=== PATIENT | female | born 1945 | race Caucasian/White ===

== ENCOUNTER → 2016-09-29 | Outpatient (CLI) | payer MEDICARE, OTHER ==
[~2016-09-29] MED LIST: ADVAIR 250/28 DISKU1 IH; ALBUTEROL0.83 MG/ML IH; ALEVE 220MG220 MG PO; BIAXIN 500MG T500 MG PO; C-PAP AT NIGHT; CALCIUM 600 W/V1 TAB PO; CELEXA10 MG PO; CEPACOL SORE TH1 LO8 MM; CEPHALEXIN250 M1; CHILDREN'S ZYRT10 MG PO; CIPRO 500MG TA500 MG PO; CIPRO500 MG PO; COMBIVENT INH14.7 GM IH; FLONASEALLERGY NS; GENTAMICIN180 MG/501 NS; HYDROCODONE/APAP PO; LEVOTHROID0.112 MG PO; LEVOTHYROXIN0.025 MG PO; LEVOXYL0.1 MG PO; LEVOXYL0.112 MG PO; LORTAB 2.5/5001 TAB PO; LOVENOX 4040 MG/0.4 SQ; MACROBID 1100 MG/CAP PO; METRONIDAZOLE500 MG PO; MULTIPLE VITAMI1 CAP PO; NEXIUM 40MG40 MG PEG; NEXIUM40 MG PO; NORCO 325 MG-51 TAB PO; NORCO 325 MG-7.1 TAB PO; PREDNISONE20 MG PO; PREVACID 30MG30 M1 PO; PRILOSEC 20MG20 MG PO; PRILOTC; PROAIR HFA0.09 MG/AC IH; REGLAN 10MG10 MG/TAB PO; ROPINIROLE HY0.25 MG PO; RT ADVAIR 228 DISKUS IH; RT SPIRIVA18 MCG IH; SINGULAIR 110 MG/TAB PO; SINGULAIR10 MG PO; SINGULAIR4 MG PO; SYNTHROID0.088 MG/T PO; ULTRAM 50MG TAB50 MG PO; VITAMIN C500 MG PO; VITAMIN D5000 IU PO; XANAX .25M0.25 MG/TA PO; ZYRTEC 10MG10 MG PO
== END ==
LOC: MC.RAD 13:51
DX: Z12.31 Encounter for screening mammogram for malignant neoplasm of breast (principal)

== ENCOUNTER 2016-12-01 13:53 | Emergency (ER) | payer MEDICARE, OTHER ==
[2005-03-03 11:22] VITALS: BP 159/86
[~2016-12-01] VITALS: Ht 157.5 cm; Wt 78.9 kg
[~2016-12-01 13:53] MED LIST changes: -FLONASEALLERGY NS; -SYNTHROID0.088 MG/T PO; -ULTRAM 50MG TAB50 MG PO
[2016-12-01 13:54] VITALS: TEMP 97.6
[2016-12-01 14:47] LABS: BASO # 0.1 (0.0-0.2); BASO % 0.8 % (0.0-2.0); EOS # 0.2 (0.0-0.7); EOS % 2.2 % (0-4.0); GRAN % 71.5 % (42.2-75.2); LYMPH # 1.6 (1.2-3.4); LYMPH % 16.8 % (20.0-51.0); MEAN CELL VOLUME 93 fl (80.0-100.0); MEAN CORPUSCULAR HGB CONC 33 g/dl (33.0-37.0); MEAN PLATELET VOLUME 8.6 fl (7.4-10.4); MONO # 0.8 (0.1-0.6); MONO % 8.5 % (1.7-9.3); PLATELET COUNT 303 K/mm3 (130-400); RED BLOOD COUNT 3.84 M/mm3 (4.10-5.30); REDCELL DISTRIBUTION WIDTH-CV 12.5 % (11.5-14.5); WHITE BLOOD COUNT 9.7 K/mm3 (4.8-10.8)
[2016-12-01 14:48] LABS: PH 6 (5-8); URINE APPEARANCE Cloudy; URINE BACTERIA Many /hpf; URINE BILIRUBIN Negative (NEGATIVE); URINE BLOOD 2+ (NEGATIVE); URINE COLOR Yellow; URINE GLUCOSE Negative (NEGATIVE); URINE KETONE Negative (NEGATIVE); URINE RBC >50 /hpf; URINE WBC >50 /hpf
[2016-12-01 14:51] LABS: HEMATOCRIT 35.6 % (37.0-47.0); HEMOGLOBIN 11.8 g/dl (12.5-16.0); MEAN CORPUSCULAR HEMOGLOBIN 31 pg (27.0-31.0)
[2016-12-01 14:56] LABS: INR 1.1 (0.8-3.0); PROTHROMBIN TIME 12.4 SECONDS (9.7-12.8)
[2016-12-01 15:03] LABS: CALCIUM 9.1 mg/dL (8.4-10.2); CREATININE, serum 0.75 mg/dL (0.52-1.25); POTASSIUM 4.5 mmol/L (3.4-5.0)
[2016-12-01] MEDS ORDERED: FLONASEALLERGY NS (15:18)
[2016-12-01] MEDS ORDERED: SYNTHROID0.088 MG/T PO (15:18)
[2016-12-01] MEDS ORDERED: ULTRAM 50MG TAB50 MG PO (15:19)
[2016-12-01] MEDS ORDERED: MACROBID 1100 MG/CAP PO (15:25)
[2016-12-01 15:36] VITALS: BP 135/85; PULSE 78
== END 2016-12-01 15:37 | disposition home or self-care (01) ==
LOC: COL.ER 13:53
PROVIDERS: Emergency Medicine
DX: N93.9 Abnormal uterine and vaginal bleeding, unspecified (principal); N89.9 Noninflammatory disorder of vagina, unspecified; Z93.3 Colostomy status

== ENCOUNTER → 2017-03-01 | Outpatient (CLI) | payer MEDICARE, OTHER ==
[~2017-03-01] MED LIST changes: +FLONASEALLERGY NS; +SYNTHROID0.088 MG/T PO; +ULTRAM 50MG TAB50 MG PO
== END ==
LOC: COL.RAD 09:29
DX: N30.20 Other chronic cystitis without hematuria (principal)

== ENCOUNTER 2017-03-26 10:31 | Inpatient (IN) | payer MEDICARE, OTHER ==
[~2017-03-26] VITALS: Ht 154.9 cm; Wt 84.1 kg
[2017-03-26 11:39] LABS: HEMATOCRIT 44.2 % (37.0-47.0); MEAN CELL VOLUME 92 fl (80.0-100.0); MEAN CORPUSCULAR HEMOGLOBIN 31 pg (27.0-31.0); MEAN CORPUSCULAR HGB CONC 34 g/dl (33.0-37.0); MEAN PLATELET VOLUME 9.2 fl (7.4-10.4); PLATELET COUNT 335 K/mm3 (130-400); REDCELL DISTRIBUTION WIDTH-CV 12.7 % (11.5-14.5); WHITE BLOOD COUNT 14.9 K/mm3 (4.8-10.8)
[2017-03-26 11:47] LABS: ADD PATHOLOGY DIFF REVIEW NO
[2017-03-26 11:56] LABS: PROTHROMBIN TIME 10.5 SECONDS (9.7-12.8)
[2017-03-26 11:59] LABS: PARTIAL THROMBOPLASTIN TIME 27.6 SECONDS (26.0-37.0)
[2017-03-26 12:12] LABS: PH 5 (5-8); SQUAMOUS EPITHELIAL 0-2 /hpf; URINE APPEARANCE Clear; URINE BACTERIA None Seen /hpf; URINE BILIRUBIN Negative (NEGATIVE); URINE BLOOD Negative (NEGATIVE); URINE COLOR Yellow; URINE GLUCOSE Negative (NEGATIVE); URINE KETONE Negative (NEGATIVE); URINE RBC None Seen /hpf; URINE UROBILINOGEN Negative (NEGATIVE); URINE WBC 0-2 /hpf
[2017-03-26 12:29] LABS: BAND 45 % (0-10); NEUTROPHILS 50 % (42.0-75.2); PLATELET ESTIMATE NORMAL (NORMAL); TOTAL CELLS COUNTED 100
[2017-03-26 12:39] LABS: ADJUSTED CALCIUM 9.2 mg/dL (8.4-10.2); ALBUMIN 5.2 gm/dL (3.5-5.0); BILIRUBIN,TOTAL 0.9 mg/dL (0.0-1.0); CALCIUM 10.2 mg/dL (8.4-10.2); CREATININE, serum 0.68 mg/dL (0.52-1.25); POTASSIUM 3.7 mmol/L (3.4-5.0); TOTAL PROTEIN 8.3 gm/dL (6.4-8.2)
[2017-03-26 17:28] VITALS: BP 148/68; PULSE 111; TEMP 98.3
[2017-03-26 21:12] VITALS: BP 142/60; PULSE 115; TEMP 98.7
[2017-03-27 01:42] VITALS: BP 142/71; PULSE 101; TEMP 98
[2017-03-27 05:52] VITALS: BP 117/42; PULSE 100; TEMP 98.2
[2017-03-27 07:59] LABS: HEMATOCRIT 37.9 % (37.0-47.0); MEAN CELL VOLUME 94 fl (80.0-100.0); MEAN CORPUSCULAR HEMOGLOBIN 31 pg (27.0-31.0); MEAN CORPUSCULAR HGB CONC 33 g/dl (33.0-37.0); MEAN PLATELET VOLUME 9.6 fl (7.4-10.4); PLATELET COUNT 291 K/mm3 (130-400); RED BLOOD COUNT 4.02 M/mm3 (4.10-5.30); WHITE BLOOD COUNT 6.3 K/mm3 (4.8-10.8)
[2017-03-27 08:00] LABS: ADD PATHOLOGY DIFF REVIEW NO; HEMOGLOBIN 12.5 g/dl (12.5-16.0)
[2017-03-27 08:10] LABS: CALCIUM 8.1 mg/dL (8.4-10.2); CREATININE, serum 0.7 mg/dL (0.52-1.25); POTASSIUM 3.6 mmol/L (3.4-5.0)
[2017-03-27 08:38] LABS: BAND 62 % (0-10); BASOPHIL 1 % (0-2); EOSINOPHIL 3 % (0-4); NEUTROPHILS 7 % (42.0-75.2); TOTAL CELLS COUNTED 100
[2017-03-27 08:39] LABS: PLATELET ESTIMATE NORMAL (NORMAL)
[2017-03-27 09:44] VITALS: BP 128/51; PULSE 98; TEMP 97.8
[2017-03-27 13:09] VITALS: BP 130/54; PULSE 94; TEMP 97.9
[2017-03-27 17:46] VITALS: BP 119/45; PULSE 100; TEMP 98.2
[2017-03-27 22:08] VITALS: BP 116/48; PULSE 95; TEMP 97.8
[2017-03-28 05:03] VITALS: BP 123/41; PULSE 85; TEMP 97.9
[2017-03-28 10:40] VITALS: BP 139/55; PULSE 84; TEMP 97.7
[2017-03-28 14:20] VITALS: BP 145/54; PULSE 85; TEMP 98.1
[2017-03-28 17:24] VITALS: BP 137/54; PULSE 86; TEMP 98.5
[2017-03-28 22:27] VITALS: BP 136/50; PULSE 95; TEMP 98.2
[2017-03-29 06:25] VITALS: BP 111/44; PULSE 83; TEMP 98.2
[2017-03-29 06:46] LABS: CALCIUM 8.2 mg/dL (8.4-10.2); CREATININE, serum 0.48 mg/dL (0.52-1.25); MAGNESIUM 1.8 mg/dL (1.6-2.3); POTASSIUM 3.7 mmol/L (3.4-5.0)
[2017-03-29 08:59] VITALS: BP 131/45; PULSE 65; TEMP 97.7
[2017-03-29 13:32] VITALS: BP 115/45; PULSE 84; TEMP 97.9
[2017-03-29 17:31] VITALS: BP 142/59; PULSE 76; TEMP 97.7
[2017-03-29 21:59] VITALS: BP 137/57; PULSE 83; TEMP 98.1
[2017-03-30 06:08] VITALS: BP 135/52; PULSE 80; TEMP 98.1
[2017-03-30 09:08] VITALS: BP 142/51; PULSE 87; TEMP 98
[2017-03-30 13:18] VITALS: BP 143/58; PULSE 70; TEMP 98.3
== END 2017-03-30 17:00 | disposition home health service (06) | DRG 393 ==
LOC: COL.ER 10:31 → SURG 15:19
PROVIDERS: Internal Medicine; Nurse Practitioner; Physician Assistant
DX: K43.3 Parastomal hernia with obstruction, without gangrene (principal); J69.0 Pneumonitis due to inhalation of food and vomit; J98.11 Atelectasis; J44.9 Chronic obstructive pulmonary disease, unspecified; K43.5 Parastomal hernia without obstruction or gangrene; E11.9 Type 2 diabetes mellitus without complications; E03.9 Hypothyroidism, unspecified; Z87.891 Personal history of nicotine dependence; Z93.3 Colostomy status
CPT/HCPCS: 99223-AI; 99232-AI; 99239; A9284; J1170; J2185; J2405; J3010; J7030; J7040; Q9967

== ENCOUNTER 2017-09-10 14:45 | Outpatient (RCR) | payer MEDICARE, OTHER ==
[~2017-09-10 14:45] MED LIST changes: +HYZAAR 50-12.1 UDTAB PO; +MASON NATURAL2000 IU PO
== END 2017-09-14 15:07 | disposition home or self-care (01) ==
LOC: MKS.ESL.PT 14:45
DX: M54.5 Low back pain (principal); G89.29 Other chronic pain; Z98.890 Other specified postprocedural states
CPT/HCPCS: G8978-GP; G8979-GP; G8980-GP

== ENCOUNTER → 2017-09-30 | Outpatient (CLI) | payer MEDICARE, OTHER | LOC: MC.RAD 13:28 | DX: Z12.31 Encounter for screening mammogram for malignant neoplasm of breast (principal) ==

== ENCOUNTER → 2018-11-24 | Outpatient (CLI) | payer MEDICARE, OTHER | LOC: MC.RAD 15:29 | DX: Z12.31 Encounter for screening mammogram for malignant neoplasm of breast (principal) ==

== ENCOUNTER → 2020-01-30 | Outpatient (CLI) | payer MEDICARE, OTHER | LOC: MC.RAD 13:45 | DX: Z12.31 Encounter for screening mammogram for malignant neoplasm of breast (principal) ==

== ENCOUNTER 2020-03-02 01:51 | Emergency (ER) | payer MEDICARE, OTHER ==
[2005-03-03 11:22] VITALS: BP 159/86
[~2020-03-02] VITALS: Ht 157.5 cm; Wt 81.8 kg
[2020-03-02 03:38] LABS: BASO # 0.1 (0.0-0.2); BASO % 0.6 % (0.0-2.0); EOS # 0.3 (0.0-0.7); EOS % 3.5 % (0-4.0); GRAN % 61.3 % (42.2-75.2); HEMATOCRIT 39.4 % (37.0-47.0); HEMOGLOBIN 12.9 g/dl (12.5-16.0); LYMPH # 2.1 (1.2-3.4); MEAN CELL VOLUME 96 fl (80.0-100.0); MEAN CORPUSCULAR HEMOGLOBIN 32 pg (27.0-31.0); MEAN CORPUSCULAR HGB CONC 33 g/dl (33.0-37.0); MEAN PLATELET VOLUME 8.9 fl (7.4-10.4); MONO # 0.8 (0.1-0.6); MONO % 9.4 % (1.7-9.3); PLATELET COUNT 242 K/mm3 (130-400); REDCELL DISTRIBUTION WIDTH-CV 12.7 % (11.5-14.5)
[2020-03-02 03:48] LABS: ALANINE AMINOTRANSFERASE 17 U/L (4-34); ALBUMIN 4.1 gm/dL (3.5-5.0); ALKALINE PHOSPHATASE 86 U/L (50-136); ANION GAP 8 mmol/L (7-16); AST,SGOT 20 U/L (15-37); BILIRUBIN,TOTAL 0.6 mg/dL (0.0-1.0); BLOOD UREA NITROGEN 18 mg/dL (7-17); CARBON DIOXIDE 29 mmol/L (22-30); CHLORIDE 96 mmol/L (98-107); CREATININE, serum 0.65 (0.52-1.25); GLUCOSE 122 mg/dL (74-106); LIPASE 41 U/L (23-300); POTASSIUM 4.3 mmol/L (3.4-5.0); SODIUM 133 mmol/L (137-145); TOTAL PROTEIN 7.1 gm/dL (6.4-8.2)
[2020-03-02 04:22] LABS: TROPONIN-I < 0.012 ng/mL (0.000-0.035)
[2020-03-02 05:29] LABS: COLLECTION METHOD CLEAN CATCH
[2020-03-02 05:39] LABS: MUCOUS Present /lpf; PH 6 (5-8); SQUAMOUS EPITHELIAL 0-2 /hpf; URINE APPEARANCE Clear; URINE BACTERIA None Seen /hpf; URINE BILIRUBIN Negative (NEGATIVE); URINE BLOOD Negative (NEGATIVE); URINE COLOR Yellow; URINE GLUCOSE Negative (NEGATIVE); URINE KETONE Negative (NEGATIVE); URINE LEUKOCYTE ESTERASE Negative (NEGATIVE); URINE NITRATE Negative (NEGATIVE); URINE PROTEIN(semi-quant) Negative (NEGATIVE); URINE RBC None Seen /hpf; URINE UROBILINOGEN Negative (NEGATIVE)
[2020-03-02] MEDS ORDERED: ZITHROMAX Z PA250 MG PO ×3 (06:55→14:53)
[2020-03-02] MEDS ORDERED: PREDNISONE20 MG PO ×3 (06:55→14:53)
[2020-03-02 07:05] VITALS: BP 127/61; PULSE 98; TEMP 97.6
== END 2020-03-02 07:25 | disposition home or self-care (01) ==
LOC: COL.ER 01:51
PROVIDERS: Emergency Medicine
DX: J44.1 Chronic obstructive pulmonary disease with (acute) exacerbation (principal); K43.9 Ventral hernia without obstruction or gangrene; E11.9 Type 2 diabetes mellitus without complications; Z87.891 Personal history of nicotine dependence; Z90.710 Acquired absence of both cervix and uterus; Z79.51 Long term (current) use of inhaled steroids; Z79.890 Hormone replacement therapy
CPT/HCPCS: J7030; J7512; Q9967

== ENCOUNTER → 2020-03-26 | Outpatient (CLI) | payer MEDICARE, OTHER ==
[~2020-03-26] MED LIST changes: +ZITHROMAX Z PA250 MG PO
== END ==
LOC: COL.RAD 12:31
DX: Z01.812 Encounter for preprocedural laboratory examination (principal); K43.6 Other and unspecified ventral hernia with obstruction, without gangrene; Z90.49 Acquired absence of other specified parts of digestive tract; Z90.710 Acquired absence of both cervix and uterus
CPT/HCPCS: Q9967

== ENCOUNTER → 2021-01-31 | Outpatient (CLI) | payer MEDICARE, OTHER | LOC: MC.RAD 13:50 | DX: Z12.31 Encounter for screening mammogram for malignant neoplasm of breast (principal) ==

== ENCOUNTER → 2022-04-06 | Outpatient (CLI) | payer MEDICARE | LOC: MC.RAD 13:37 | DX: Z12.31 Encounter for screening mammogram for malignant neoplasm of breast (principal) ==

== ENCOUNTER 2022-06-10 11:18 | Inpatient (IN) | payer MEDICARE ==
[~2022-06-10] VITALS: Ht 157.5 cm; Wt 84.1 kg
[2022-06-10 12:05] LABS: HEMATOCRIT 44.5 % (37.0-47.0); MEAN CELL VOLUME 94 fl (80.0-100.0); MEAN CORPUSCULAR HEMOGLOBIN 32 pg (27-31); MEAN CORPUSCULAR HGB CONC 34 g/dl (33.0-37.0); PLATELET COUNT 320 K/mm3 (130-400); RED BLOOD COUNT 4.73 M/mm3 (4.10-5.30); REDCELL DISTRIBUTION WIDTH-CV 12.4 % (11.5-14.5)
[2022-06-10 12:12] LABS: ALBUMIN 4.6 gm/dL (3.4-4.8); BILIRUBIN,TOTAL 0.8 mg/dL (0.2-1.2); C-REACTIVE PROTEIN 2.66 mg/dL (0.00-0.50); CALCIUM 9.9 mg/dL (8.4-10.2); CREATININE, serum 0.9 mg/dL (0.57-1.11); TOTAL PROTEIN 8.1 gm/dL (6.2-8.1)
[2022-06-10 12:19] LABS: BAND 28 % (0-10); LYMPHOCYTE 2 % (20.0-51.0); NEUTROPHILS 67 % (42.0-75.2); POTASSIUM 3.9 mmol/L (3.5-4.5)
[2022-06-10 12:20] LABS: PLATELET ESTIMATE NORMAL (NORMAL)
[2022-06-10 16:50] VITALS: BP 139/70; PULSE 109; TEMP 97.6
--- NOTE | 2022-06-10 17:20 | NUR ---
Patient arrived to the unit by bed, alert and oriented x 4, VSS. States she has pain in the lower abdoment 06/08, No signs of hard discomfort. Colostomy bag in the left lower quadrant. Empty. STates last time she emptied it was yesterday 06/09/22 in the morning. NG tube with constant succion. Dark green output.
--- NOTE | 2022-06-10 18:12 | NUR ---
Call placed to Dr Small to get instrunctions about patient diet. Message was left with his spouse to call us back. Pt right now NPO and contninues with NG suction. Report will be given to night RN.
--- NOTE | 2022-06-10 18:27 | NUR ---
Patient is resting in bed, continues with discomfort in her lower abdomen. Suction on. Report will be given to night RN.
[2022-06-10 19:38] VITALS: BP 155/63; PULSE 111; TEMP 98.4
[2022-06-11] VITALS (7 sets, daily range): BP systolic 109–156; BP diastolic 47–67; PULSE 88–104; TEMP 97.2–98.7
--- NOTE | 2022-06-11 00:53 | NUR ---
00:53 MISA GRAY NOTIFIED OF PTS TROPONIN OF 0.034. NEW ORDER FOR TROPONIN RECHECK AT 5 AM. WILL MONITOR.
--- NOTE | 2022-06-11 03:55 | NUR ---
SHIFT NURSING ASSESSMENT COMPLETED. THE PATIENT IS ALERT AND ORIENTED AND APPROPRIATE. THE PATIENT REQUESTED HER THERMOSTAT BE TURNED DOWN SO THE TEMPERATURE WAS ADJUSTED. NO S/S OF DISTRESS NOTED. NG TUBE TO LIS WITH THIN GREEN LIQUID OUTPUT NOTED. THE BED IS IN THE LOWEST POSITION, CALL LIGHT WITHIN REACH WELL OTHER PERSONAL BELONGINGS. BED ALARM ON.
[2022-06-11 06:36] LABS: BASO # 0.1 K/mm3 (0.0-0.2); BASO % 0.5 % (0.0-2.0); EOS % 0.1 % (0.0-4.0); GRAN % 80.4 % (42.2-75.2); HEMATOCRIT 39.7 % (37.0-47.0); HEMOGLOBIN 13.2 g/dl (12.5-16.0); LYMPH # 1.7 K/mm3 (1.2-3.4); LYMPH % 11.2 % (20.0-51.0); MEAN CELL VOLUME 95 fl (80.0-100.0); MEAN CORPUSCULAR HEMOGLOBIN 32 pg (27-31); MEAN CORPUSCULAR HGB CONC 33 g/dl (33.0-37.0); MEAN PLATELET VOLUME 9.6 fl (7.4-10.4); MONO # 1.1 K/mm3 (0.1-0.6); MONO % 7.1 % (1.7-9.3); PLATELET COUNT 290 K/mm3 (130-400); RED BLOOD COUNT 4.19 M/mm3 (4.10-5.30); REDCELL DISTRIBUTION WIDTH-CV 12.7 % (11.5-14.5)
[2022-06-11 06:56] LABS: CALCIUM 8.7 mg/dL (8.4-10.2); CREATININE, serum 0.79 mg/dL (0.57-1.11); POTASSIUM 4.1 mmol/L (3.5-4.5)
[2022-06-11 07:06] LABS: TROPONIN-I 0.035 ng/mL (0.00-0.033)
--- NOTE | 2022-06-11 08:00 | NUR ---
Patient laying in bed sleeping, easily awakened with verbal command. A&Ox4. VSS 4L NC O2, no reported SOB. NG tube LIS, green output in canister. Patient reporting discomfort in stomach, HOB elevated and patient laying on side for comfort. IV CDI. No further needs expressed. Call light within reach
[2022-06-11] MEDS ORDERED: ZOLOFT 50MG50 MG PO (10:00)
--- NOTE | 2022-06-11 16:08 | NUR ---
SW met with patient to complete intake and discuss discharge plan. Patient reports that she lives at home with her Jomar ([phone]). Patient is independent with her ADL's and utilizes a walker to assist with mobility. She denies having home oxygen needs but she is currently on 3L of NC oxygen. Patient does utilize a CPAP at night and also has a colostomy. She gets her DME supplies and her prescriptions from [facility] pharmacy. PCP is Dr. Turner. Patient does have a DPOA-HC established listing her first and her nephew Wilder as a secondary agent. GONZALO requests that RN place a PT/OT eval on the patient to assess HH needs. Discharge plan: Home pending PT/OT rec's
--- NOTE | 2022-06-11 17:36 | NUR ---
Patient had an uneventful day. Sleep most of the shift, came to visit. A&Ox4, drowsy, easily awakened with verbal command. VSS 4L NC O2, no reported SOB. IV CDI, fluids infusing. NG tube LIS, small amount green output. Reports discomfort in stomach, no medication requested. NPO with ice chips. No further needs expressed. Call light within reach
[2022-06-12] VITALS (13 sets, daily range): BP systolic 124–147; BP diastolic 43–89; PULSE 87–97; TEMP 98–98.9
--- NOTE | 2022-06-12 07:25 | NUR ---
NURSING SHIFT ASSESSMENT COMPLETED. THE PATIENT IS ALERT AND ORIENTED AND APPROPRIATE. THE NG TUBE SECURING DEVICE WAS LOOSE SO A NEW ONE WAS APPLIED. THE PATIENT DENIED PAIN. NO OTHER NEEDS AT THIS TIME. BED IN LOW POSITION, CALL LIGHT WITHIN REACH WELL OTHER PERSONAL BELONGINGS.
[2022-06-12 07:50] LABS: COLLECTION METHOD CLEAN CATCH
[2022-06-12 08:08] LABS: MUCOUS Present (NOT PRESENT); URINE BACTERIA Rare /hpf (NONE SEEN); URINE RBC 0-2 /hpf (0-2)
[2022-06-12 08:09] LABS: URINE APPEARANCE Clear (CLEAR/HAZY); URINE COLOR Yellow (YELLOW)
[2022-06-12 08:10] LABS: PH 6.5 (5.0-8.5); URINE BLOOD Negative (NEGATIVE); URINE GLUCOSE Negative (NEGATIVE); URINE KETONE Negative (NEGATIVE); URINE NITRATE Negative (NEGATIVE); URINE PROTEIN(semi-quant) TRACE (NEGATIVE)
--- NOTE | 2022-06-12 10:19 | NUR ---
Initial visit attempt; Patient resting, High School History Teacher left "Card of Hope" and God's blessings from High School History Teacher.
--- NOTE | 2022-06-12 11:00 | NUR ---
GAVE REPORT TO SARAH IN OR FOR PATIENT COMING FOR LAPAROSCOPY. PATIENT SIGNED CONSENT AND WAS TAKEN DOWN TO THE OR. NO ISSUES WITH TRANSPORT
--- NOTE | 2022-06-12 11:25 | NUR ---
Patient to room 348 from the OR. Patient A&Ox4. VSS 2L NC O2. IV CDI. Denies pain and discomfort. Post op VS monitored. Nurse oriented the patient to location, room and call light. Family at the bedside. No further needs expressed. Call light within reach
--- NOTE | 2022-06-12 15:05 | NUR ---
GAVE REPORT TO YESICA TELLO TO TRANSFER OVER TO SURGICAL POST OR PROCEDURE.
--- NOTE | 2022-06-12 17:34 | NUR ---
Patient resting in bed after arriving from a procedure. Easily awakened with verbal command. A&Ox4. VSS 2L NC O2, no reported SOB and post op VS monitoring. IV CDI, fluids infusing. NG tube LIS, intact. Abdominal sites x4 CDI. Pain medication given when requested. Patient NPO but can have ice chips. No further needs expressed. Call light within reach
--- NOTE | 2022-06-12 21:28 | NUR ---
SHIFT REPORT FROM YOLIE ROBERT. PATIENT IN BED ON ROOM ENTRY. ALERT AND ORIENTED. HS MEDS PER EMAR. INQUIRED ABOUT HER INHALER THAT HAS BEEN ON HOLD AND CALL PLACED TO CLEO, INHALER RESTARTED. CONTACTED RT FOR MANAGEMENT. REMAINS NPO WITH SIPS AND CHIPS. NG TO LIS WITH GREEN OUTPUT. BRYAN TO DD WITH CLEAR YELLOW URINE OUTPUT. X4 ABD LAPS CDI WITH GLUE. OSTOMY SITE PINK, NO DRAINAGE NOTED AT THIS TIME. REQUESTS PRN MORPHINE FOR 8/10 PAIN TO ABD. DENIES ADDITIONAL NEEDS. CALL LIGHT IN REACH.
[2022-06-13 03:08] VITALS: BP 123/49; PULSE 85; TEMP 97.6
[2022-06-13 07:55] VITALS: BP 110/44; PULSE 78; TEMP 98.2
[2022-06-13 07:57] LABS: BASO % 0.4 % (0.0-2.0); EOS # 0.1 K/mm3 (0.0-0.7); EOS % 0.5 % (0.0-4.0); GRAN # 8.6 K/mm3 (1.4-6.5); GRAN % 77.3 % (42.2-75.2); HEMOGLOBIN 11.1 g/dl (12.5-16.0); LYMPH # 1.5 K/mm3 (1.2-3.4); LYMPH % 13.5 % (20.0-51.0); MEAN CELL VOLUME 96 fl (80.0-100.0); MEAN CORPUSCULAR HEMOGLOBIN 32 pg (27-31); MEAN CORPUSCULAR HGB CONC 34 g/dl (33.0-37.0); MEAN PLATELET VOLUME 9.3 fl (7.4-10.4); MONO # 0.9 K/mm3 (0.1-0.6); MONO % 7.8 % (1.7-9.3); PLATELET COUNT 231 K/mm3 (130-400); RED BLOOD COUNT 3.45 M/mm3 (4.10-5.30); REDCELL DISTRIBUTION WIDTH-CV 12.5 % (11.5-14.5)
[2022-06-13 08:03] LABS: CALCIUM 7.7 mg/dL (8.4-10.2); CREATININE, serum 0.71 mg/dL (0.57-1.11); POTASSIUM 4.1 mmol/L (3.5-4.5)
--- NOTE | 2022-06-13 08:49 | NUR ---
PT UP TO RECLINER AFTER BEDBATH WITH STAFF. NG TO LIS WITH BLACKISH DRAINAGE IN CANISTER. PT DENIES PAIN. REQUESTING FOOD. REMINDED HER THAT SHE COULD ONLY HAVE SIPS AND CHIPS AT THIS TIME D/T NG TUBE.
[2022-06-13 12:04] VITALS: BP 124/48; PULSE 84; TEMP 98.3
[2022-06-13 16:43] VITALS: BP 126/71; PULSE 94; TEMP 98.8
[2022-06-13 20:00] VITALS: BP 140/65; PULSE 89; TEMP 98.1
[2022-06-13 23:49] VITALS: BP 142/66; PULSE 85; TEMP 98.3
[2022-06-14 04:20] VITALS: BP 136/45; PULSE 84; TEMP 98.4
--- NOTE | 2022-06-14 06:23 | NUR ---
pt remains NPO, NG to RT nare to LIS, 500cc dk brown liquid out this shift, morphine given x2 tonight for abd discomfort, IVF infusing per PIV @75cc/hr, plunkett draining neo colored, clear urine, no stool in colostomy bag. requiring 2L O2 per NC to keep sats >90%, po meds held, mild anxiety this shift. turning q2hrs with assistance
[2022-06-14 07:12] LABS: CALCIUM 7.7 mg/dL (8.4-10.2); CREATININE, serum 0.66 mg/dL (0.57-1.11); POTASSIUM 3.3 mmol/L (3.5-4.5)
[2022-06-14 07:13] LABS: BASO # 0.1 K/mm3 (0.0-0.2); BASO % 0.6 % (0.0-2.0); EOS # 0.2 K/mm3 (0.0-0.7); EOS % 2.8 % (0.0-4.0); GRAN # 6.1 K/mm3 (1.4-6.5); HEMOGLOBIN 11.4 g/dl (12.5-16.0); LYMPH # 1.5 K/mm3 (1.2-3.4); LYMPH % 17.9 % (20.0-51.0); MEAN CELL VOLUME 95 fl (80.0-100.0); MEAN CORPUSCULAR HEMOGLOBIN 32 pg (27-31); MEAN CORPUSCULAR HGB CONC 33 g/dl (33.0-37.0); MEAN PLATELET VOLUME 9.3 fl (7.4-10.4); MONO # 0.6 K/mm3 (0.1-0.6); MONO % 7.5 % (1.7-9.3); PLATELET COUNT 277 K/mm3 (130-400); RED BLOOD COUNT 3.61 M/mm3 (4.10-5.30); REDCELL DISTRIBUTION WIDTH-CV 12.2 % (11.5-14.5)
[2022-06-14 07:23] LABS: HEMATOCRIT 34.4 % (37.0-47.0)
[2022-06-14 07:52] VITALS: BP 118/54; PULSE 83; TEMP 97.8
--- NOTE | 2022-06-14 09:47 | NUR ---
PT UP TO RECLINER WITH ASSIST FROM THERAPY. IV TO LF. NG TO LIS WITH BLACK DRAINAGE TO CANISTER. BRYAN TO DD WITH CLEAR YELLOW URINE. NO DISCHARGE FROM COLOSTOMY. DR. GONZALEZ REPORTS THAT ILEUS IS PRESENT. WAITING FOR THIS TO RESOLVE. WILL REMOVE NG TUBE ONCE OUTPUT FROM COLOSTOMY IS PRESENT. ADVANCE DIET AT THAT TIME.
[2022-06-14 12:02] VITALS: BP 132/54; PULSE 84; TEMP 97.6
[2022-06-14 15:55] VITALS: BP 123/49; PULSE 83; TEMP 97.8
[2022-06-14 19:08] VITALS: BP 139/57; PULSE 85; TEMP 98.6
--- NOTE | 2022-06-14 20:08 | NUR ---
SHIFT REPORT FROM NATALYA ROBERT. PATIENT IN BED ON ROOM ENTRY. ASSISTED TO TURN ON SIDE. HS MEDS PER EMAR. BRYAN TO DD WITH JORGE OUTPUT. NG TO LIS WITH BLACK OUTPUT. X5 ABD LAPS CDI WITH GLUE. STOMA SITE PINK AND OSTOMY APPLIANCE WITH NO DRAIANGE NOTED. PATIENT RESTING IN BED, EYES CLOSED, RR EVEN AND UNLABORED.
[2022-06-14 23:34] VITALS: BP 121/53; PULSE 80; TEMP 98.2
[2022-06-15 04:11] VITALS: BP 150/48; PULSE 77; TEMP 98.3
[2022-06-15 06:49] LABS: BASO # 0.1 K/mm3 (0.0-0.2); BASO % 0.6 % (0.0-2.0); EOS # 0.3 K/mm3 (0.0-0.7); EOS % 3.7 % (0.0-4.0); GRAN # 6.4 K/mm3 (1.4-6.5); GRAN % 71.5 % (42.2-75.2); HEMOGLOBIN 11.9 g/dl (12.5-16.0); LYMPH # 1.5 K/mm3 (1.2-3.4); LYMPH % 16.8 % (20.0-51.0); MEAN CELL VOLUME 98 fl (80.0-100.0); MEAN CORPUSCULAR HEMOGLOBIN 32 pg (27-31); MEAN CORPUSCULAR HGB CONC 33 g/dl (33.0-37.0); MEAN PLATELET VOLUME 9.2 fl (7.4-10.4); MONO # 0.6 K/mm3 (0.1-0.6); PLATELET COUNT 293 K/mm3 (130-400); RED BLOOD COUNT 3.73 M/mm3 (4.10-5.30); REDCELL DISTRIBUTION WIDTH-CV 12.2 % (11.5-14.5)
[2022-06-15 06:59] LABS: HEMATOCRIT 36.4 % (37.0-47.0)
[2022-06-15 07:06] LABS: CALCIUM 7.8 mg/dL (8.4-10.2); CREATININE, serum 0.63 mg/dL (0.57-1.11); POTASSIUM 3.6 mmol/L (3.5-4.5)
[2022-06-15 07:21] VITALS: BP 137/55; PULSE 86; TEMP 97.9
--- NOTE | 2022-06-15 09:39 | NUR ---
Patient awake after hospitalist rounded. Up to the chair. one assist with walker. Hygiene provided. Patient up to sink and brushed her teeth. Warm wipes & shower cap used. fresh linens. Nieves cares given. Ostomy care given. New appliance and bag. No flatus or stool noted in bag. Incision site edges well approximated. Will monitor.
--- NOTE | 2022-06-15 11:10 | NUR ---
Patient continues to sit up in chair, She reports elevaated pain after working with therapy. Prn pain medication request and given. Ng tube currently clamped so that po medication could be given. Will monitor
[2022-06-15 12:02] VITALS: BP 123/56; PULSE 78; TEMP 97.5
[2022-06-15 14:14] LABS: MAGNESIUM 1.8 mg/dL (1.6-2.6); PHOSPHOROUS 2.8 mg/dL (2.3-4.7)
--- NOTE | 2022-06-15 14:38 | NUR ---
Patient resting in bed. rounded. PLan of care reviewed. I spoke with Zohra davis. Order for picc being placed currently to start TPN. Will clamped NG and start clears once finished.
[2022-06-15 15:56] VITALS: BP 140/51; PULSE 81; TEMP 98.2
--- NOTE | 2022-06-15 17:10 | NUR ---
Patient tolerating her NG tube being clamped, she has had a few sips of juice without nausea. Picc to [facility], [employer] started per orders. SHe denies pain at this time. Tucker bangura.
--- NOTE | 2022-06-15 19:19 | NUR ---
Bedside report to nightnurse
[2022-06-15 19:46] VITALS: BP 128/45; PULSE 90; TEMP 98.5
--- NOTE | 2022-06-15 20:57 | NUR ---
SHIFT REPORT FROM VERN ROBERT. PATIENT IN BED ON ROOM ENTRY. ALERT AND ORIENTED BUT DROWSY PER PATIENT. HS MEDS PER EMAR. PRN MORPHINE GIVEN FOR BACK PAIN. PATIENT ASSISTED TO REPOSITION. NG TUBE REMAINS CLAMPED. DENIES NAUSEA. BRYAN TO DD WITH JORGE URINE OUTPUT. OSTOMY STILL NO OUTPUT. PICC TO KATHERINE WITH TPN AND FAT EMULSIONS INFUSING. DENIES ADDITIONAL NEEDS. CALL LIGHT IN PLACE.
[2022-06-15 23:45] VITALS: BP 131/29; PULSE 89; TEMP 98.2
[2022-06-16] VITALS (10 sets, daily range): BP systolic 115–159; BP diastolic 33–74; PULSE 45–96; TEMP 98–99
--- NOTE | 2022-06-16 07:03 | NUR ---
DR. VACA NOTIFIED OF CARDIOLOGY CONSULT. NPO ORDER.
[2022-06-16 07:08] LABS: CALCIUM 8.4 mg/dL (8.4-10.2); CREATININE, serum 0.64 mg/dL (0.57-1.11); MAGNESIUM 1.8 mg/dL (1.6-2.6); PHOSPHOROUS 2.7 mg/dL (2.3-4.7); POTASSIUM 3.3 mmol/L (3.5-4.5)
--- NOTE | 2022-06-16 07:10 | NUR ---
Pt resting upon entry. Once aroused she reported she does not feel good. When asked to describe, Pt states, "My stomach feels funny, I would vomit if I could." Breath sounds noted with coarse crackles/wheezing in bilateral upper lobes. Diminished breath sounds heard in lower lobes. IS used at this time. Pt unable to demonstrate proper technique even after education. NG tube in place with 23" external. Clamped off upon entry; nurse attached LIS in middle of assessment. Dark green output noted. Pt refused appliance of SCDs and said they make her legs hurt. No output in colostomy bag oberved at this time. Pt repositioned with call light in place.
--- NOTE | 2022-06-16 09:29 | NUR ---
PT RESTING IN BED. COMPLAINING OF ABDOMINAL PAIN, MEDICATION GIVEN PER eMAR. MORNING MEDICATIONS GIVEN, PT REMAINS NPO AT THIS TIME. PICC LINE FLUSHES AND HAS GOOD BLOOD RETURN. BRYAN DRAINING WELL. NO OUTPUT INTO OSTOMY BAG. NG TUBE SUCTION BACK IN PLACE, PT HAVING BROWN/GREEN OUTPUT. CALL LIGHT WITHIN REACH. TPN INFUSING THROUGH PICC LINE. WILL CONTINUE TO MONITOR.
--- NOTE | 2022-06-16 13:20 | NUR ---
SEE MERGE FOR VITAL SIGNS, ASSESSMENTS, INTERVENTIONS AND MEDICATIONS GIVEN.
[2022-06-16 16:20] LABS: INR 1.2 (0.8-3.0)
[2022-06-17 03:30] VITALS: BP 124/55; PULSE 82; TEMP 97.7
--- NOTE | 2022-06-17 04:16 | NUR ---
SHIFT REPORT FROM AUTUMN ROBERT. PATIENT IN BED ON ROOM ENTRY. ALERT AND ORIENTED. HS MEDS PER EMAR. NG TO LIS WITH BROWN/GREEN OUTPUT. COLOSTOMY WITH NO OUTPUT REPORTED. TPN INFUSING AT THIS TIME. PACER SITE CDI WITH GAUZE. REMAINS NPO WITH SIPS AND CHIPS.
[2022-06-17 05:06] LABS: BASO # 0.1 K/mm3 (0.0-0.2); BASO % 0.4 % (0.0-2.0); EOS # 0.5 K/mm3 (0.0-0.7); EOS % 3.4 % (0.0-4.0); GRAN # 11.6 K/mm3 (1.4-6.5); GRAN % 81.2 % (42.2-75.2); HEMOGLOBIN 11.4 g/dl (12.5-16.0); LYMPH # 1.1 K/mm3 (1.2-3.4); LYMPH % 7.3 % (20.0-51.0); MEAN CELL VOLUME 97 fl (80.0-100.0); MEAN CORPUSCULAR HEMOGLOBIN 32 pg (27-31); MEAN CORPUSCULAR HGB CONC 33 g/dl (33.0-37.0); MEAN PLATELET VOLUME 8.9 fl (7.4-10.4); MONO % 6.9 % (1.7-9.3); PLATELET COUNT 273 K/mm3 (130-400); RED BLOOD COUNT 3.58 M/mm3 (4.10-5.30); REDCELL DISTRIBUTION WIDTH-CV 12.2 % (11.5-14.5)
[2022-06-17 05:23] LABS: HEMATOCRIT 34.6 % (37.0-47.0)
[2022-06-17 05:31] LABS: CALCIUM 8.1 mg/dL (8.4-10.2); CREATININE, serum 0.69 mg/dL (0.57-1.11); MAGNESIUM 1.7 mg/dL (1.6-2.6); PHOSPHOROUS 3.3 mg/dL (2.3-4.7); POTASSIUM 3.9 mmol/L (3.5-4.5)
[2022-06-17 08:07] VITALS: BP 149/58; PULSE 79; TEMP 98.3
--- NOTE | 2022-06-17 08:30 | NUR ---
NG does not look like it is in far enough. NG advanced approximately 8 cm at this time.
--- NOTE | 2022-06-17 09:38 | NUR ---
Pt having several complaints today. She does not necessarily say that she is hurting but states her mid chest to left chest is bothering her where the pacemaker was placed. Incision to that is well approximated, steristrips intact. Pt does have coarse expirations, but she does have phylgm in her throat that she says she cannot cough up. It causes her voice to rattle, then pt tries to swallow and she gags on it. NG was advanced 3 inches. Output is dark greenish/brown. Lap sites are all well approximated with no dressing. Pacemaker download has been completed.
--- NOTE | 2022-06-17 11:11 | NUR ---
Initial visit; Patient thanked Cashier Tube Room for looking in on her and offering prayer. A Student Nurse had requested a visit for Aziza who has been a patient for over a week and had been seen earlier and never requested a return visit.
--- NOTE | 2022-06-17 11:39 | NUR ---
NG tube advanced 17cm at this time.
[2022-06-17 12:00] VITALS: BP 142/44; PULSE 86; TEMP 98.6
--- NOTE | 2022-06-17 15:00 | NUR ---
Pt has been quiet today. She has had very little complaints of pain. NG to LIS, continues to have output. Pt has worked with PT/OT today. Pt continues to have a little cough with phlygm in ther throat. RT has been in working with pt.
[2022-06-17 15:29] VITALS: BP 142/55; PULSE 92; TEMP 98
--- NOTE | 2022-06-17 19:22 | NUR ---
RECEIVED CHANGE OF SHIFT REPORT FROM DAY SHIFT RN.
[2022-06-17 20:00] VITALS: BP 140/58; PULSE 94; TEMP 99
[2022-06-18] VITALS (7 sets, daily range): BP systolic 123–155; BP diastolic 43–66; PULSE 80–100; TEMP 97.9–98.6
--- NOTE | 2022-06-18 07:13 | NUR ---
CHANGE OF SHIFT REPORT GIVEN TO DAY SHIFT RNNATALYA
[2022-06-18 07:22] LABS: BASO # 0.1 K/mm3 (0.0-0.2); BASO % 0.7 % (0.0-2.0); EOS # 0.5 K/mm3 (0.0-0.7); EOS % 3.9 % (0.0-4.0); GRAN # 8.6 K/mm3 (1.4-6.5); GRAN % 72.7 % (42.2-75.2); LYMPH # 1.5 K/mm3 (1.2-3.4); LYMPH % 12.2 % (20.0-51.0); MEAN CELL VOLUME 95 fl (80.0-100.0); MEAN CORPUSCULAR HEMOGLOBIN 31 pg (27-31); MEAN CORPUSCULAR HGB CONC 33 g/dl (33.0-37.0); MEAN PLATELET VOLUME 9.2 fl (7.4-10.4); MONO # 1.1 K/mm3 (0.1-0.6); MONO % 9.5 % (1.7-9.3); PLATELET COUNT 259 K/mm3 (130-400); RED BLOOD COUNT 3.51 M/mm3 (4.10-5.30); REDCELL DISTRIBUTION WIDTH-CV 12.3 % (11.5-14.5)
[2022-06-18 07:24] LABS: HEMATOCRIT 33.5 % (37.0-47.0)
[2022-06-18 07:37] LABS: CALCIUM 8.4 mg/dL (8.4-10.2); CREATININE, serum 0.63 mg/dL (0.57-1.11); MAGNESIUM 2.1 mg/dL (1.6-2.6); PHOSPHOROUS 3.5 mg/dL (2.3-4.7); POTASSIUM 4.3 mmol/L (3.5-4.5)
--- NOTE | 2022-06-18 09:39 | NUR ---
Pt have some complaints of pain in her left ankle. Nothing seen that would cause the pain, pain only noted when she was walking. Pt did ambulate from one side of bed to the other and is currently sitting up in the chair. NG is clamped to see how pt does.
--- NOTE | 2022-06-18 12:11 | NUR ---
room worker met with patient and spoke with spouse on the telephone, in patient's room and discussed discharge planning. Patient has been refusing to get up with therapy, however does not want to transfer to a rehab upon discharge. Worker was with patient and encouraged her, along with physical therapist, to work this date and every day in order to be strong enough to return home. Patient states she has 5 steps to get into her trailer home. Worker stressed that right now skilled care would be the safest discharge plan. Worker will continue to follow and assist with securing a safe discharge plan. Patient has an NG tube at this time.
--- NOTE | 2022-06-18 15:06 | NUR ---
Pt has been sitting up in the chair most of the day. She has not really complained of any nausea since starting clear liquids. Pt remains tolerable. Pt has had an ice pack to her left chest, pacemaker incision. Pts has been at bedside this afternoon. PT assisting pt back to bed at this time
--- NOTE | 2022-06-19 01:45 | NUR ---
Patient A/O x4, VSS, head to toe assessment done, with NG tube clamped, still with TPN running thru PICC line, colostomy bag clean, dry and intact, remains on plunkett catheter draining yellow urine, denies the need for pain medicine, noted redness to left groin will continue to monitor, repositioned patient, call light and personal items within reach.
[2022-06-19 03:36] VITALS: BP 147/60; PULSE 86; TEMP 98.3
[2022-06-19 06:53] LABS: BASO # 0.1 K/mm3 (0.0-0.2); BASO % 0.7 % (0.0-2.0); EOS # 0.5 K/mm3 (0.0-0.7); EOS % 3.6 % (0.0-4.0); GRAN # 9.2 K/mm3 (1.4-6.5); GRAN % 72.5 % (42.2-75.2); HEMOGLOBIN 11.5 g/dl (12.5-16.0); LYMPH # 1.7 K/mm3 (1.2-3.4); LYMPH % 13.1 % (20.0-51.0); MEAN CELL VOLUME 96 fl (80.0-100.0); MEAN CORPUSCULAR HEMOGLOBIN 32 pg (27-31); MEAN CORPUSCULAR HGB CONC 33 g/dl (33.0-37.0); MEAN PLATELET VOLUME 9.3 fl (7.4-10.4); MONO # 1.1 K/mm3 (0.1-0.6); MONO % 8.8 % (1.7-9.3); PLATELET COUNT 257 K/mm3 (130-400); REDCELL DISTRIBUTION WIDTH-CV 12.2 % (11.5-14.5)
[2022-06-19 06:55] LABS: HEMATOCRIT 34.7 % (37.0-47.0)
[2022-06-19 07:25] LABS: CALCIUM 8.5 mg/dL (8.4-10.2); CREATININE, serum 0.61 mg/dL (0.57-1.11); PHOSPHOROUS 2.7 mg/dL (2.3-4.7); POTASSIUM 4.1 mmol/L (3.5-4.5)
[2022-06-19 08:08] VITALS: BP 145/52; PULSE 81; TEMP 98.6
[2022-06-19 12:55] VITALS: BP 148/60; PULSE 83; TEMP 97.7
[2022-06-19 15:38] VITALS: BP 131/47; PULSE 85; TEMP 99
[2022-06-19 20:04] VITALS: BP 108/52; PULSE 90; TEMP 97.6
[2022-06-19 23:52] VITALS: BP 123/53; PULSE 90; TEMP 97.8
[2022-06-20 04:35] VITALS: BP 126/49; PULSE 91; TEMP 98.2
--- NOTE | 2022-06-20 07:15 | NUR ---
Received shift report from the shift boss nurse, Paulino ROBERT.
[2022-06-20 07:22] LABS: HEMOGLOBIN 10.5 g/dl (12.5-16.0); MEAN CELL VOLUME 97 fl (80.0-100.0); MEAN CORPUSCULAR HEMOGLOBIN 32 pg (27-31); MEAN CORPUSCULAR HGB CONC 33 g/dl (33.0-37.0); MEAN PLATELET VOLUME 9.6 fl (7.4-10.4); PLATELET COUNT 240 K/mm3 (130-400); RED BLOOD COUNT 3.31 M/mm3 (4.10-5.30); REDCELL DISTRIBUTION WIDTH-CV 12.5 % (11.5-14.5)
[2022-06-20 07:30] LABS: HEMATOCRIT 32.2 % (37.0-47.0)
[2022-06-20 07:50] LABS: ALBUMIN 2.7 gm/dL (3.4-4.8); BILIRUBIN,TOTAL 0.3 mg/dL (0.2-1.2); CALCIUM 8.3 mg/dL (8.4-10.2); CREATININE, serum 0.62 mg/dL (0.57-1.11); POTASSIUM 4.5 mmol/L (3.5-4.5); TOTAL PROTEIN 5.6 gm/dL (6.2-8.1)
[2022-06-20 08:00] VITALS: BP 144/51; PULSE 90; TEMP 98.3
[2022-06-20 09:09] LABS: BAND 7 % (0-10); EOSINOPHIL 3 % (0-4); LYMPHOCYTE 12 % (20.0-51.0); METAMYELOCYTE 1 % (0-0); MYELOCYTE 2 % (0-0); NEUTROPHILS 66 % (42.0-75.2); PLATELET ESTIMATE NORMAL (NORMAL)
--- NOTE | 2022-06-20 10:01 | NUR ---
Patient sitting up in bed eating breakfast. PO intake inadequate. TPN infusing at 63ml/hr. Colostomy bag intact. Patient denies abdominal discomfort. Family members at the bedside.
[2022-06-20 12:00] VITALS: BP 112/40; PULSE 90; TEMP 97.5
--- NOTE | 2022-06-20 12:29 | NUR ---
SW spoke with pt about DC planning. Gunjan gave pt list of HH choices from medicare.gov. Pt chose [facility]. SW to fax referral to them at 12:30 pm 06/20. Pt is choosing HH services.
--- NOTE | 2022-06-20 12:45 | NUR ---
Administrator Of Home Health rounds: Administrator Of Home Health visit attempted. RN was in room with Patient. Administrator Of Home Health visit not completed.
--- NOTE | 2022-06-20 13:51 | NUR ---
Patient Placement Coordinator rounds: Patient had a visitor, but still accepted prayer. When asked if she had a specific prayer request, Patient said that "God knows." Patient Placement Coordinator prayed for what God already knows. Patient and visitor thanked Patient Placement Coordinator for the prayer.
[2022-06-20 16:00] VITALS: BP 144/57; PULSE 87; TEMP 98.2
--- NOTE | 2022-06-20 17:15 | NUR ---
Patient c/o feeling nauseous. Offer to administer zofran, patient declines. Patient wants to sit up in bed and requested ice water to alleviate the symptoms of feeling nauseous. Ice water offered and will continue to monitor patient.
[2022-06-20 20:30] VITALS: BP 141/63; PULSE 91; TEMP 98.1
[2022-06-20 23:44] VITALS: BP 135/61; PULSE 84; TEMP 97.4
--- NOTE | 2022-06-21 02:12 | NUR ---
NURSING SHIFT ASSESSMENT COMPLETED. THE PATIENT HAD A SMALL AMOUNT OF SOFT BROWN STOOL IN HER OSTOMY BAG. BOWEL SOUNDS ACTIVE. FRESH WATER WAS PROVIDED AND REPOSITIONING ASSISTANCE WELL. NO S/S OF DISTRESS NOTED. CALL LIGHT AND PERSONAL BELONGINGS WITHIN REACH. BED IN LOW POSITION AND BED ALARM ON.
[2022-06-21 03:23] VITALS: BP 118/46; PULSE 88; TEMP 97.8
--- NOTE | 2022-06-21 07:14 | NUR ---
Received shift report from the shift production supervisor nurse, RN
[2022-06-21 08:14] LABS: HEMOGLOBIN 10.3 g/dl (12.5-16.0); MEAN CELL VOLUME 94 fl (80.0-100.0); MEAN CORPUSCULAR HEMOGLOBIN 32 pg (27-31); MEAN CORPUSCULAR HGB CONC 34 g/dl (33.0-37.0); MEAN PLATELET VOLUME 9.7 fl (7.4-10.4); PLATELET COUNT 258 K/mm3 (130-400); RED BLOOD COUNT 3.23 M/mm3 (4.10-5.30); REDCELL DISTRIBUTION WIDTH-CV 12.3 % (11.5-14.5)
[2022-06-21 08:19] LABS: HEMATOCRIT 30.4 % (37.0-47.0)
[2022-06-21 08:37] VITALS: BP 126/44; PULSE 87; TEMP 97.5
[2022-06-21 08:56] LABS: ALBUMIN 2.7 gm/dL (3.4-4.8); BILIRUBIN,TOTAL 0.5 mg/dL (0.2-1.2); CALCIUM 8.3 mg/dL (8.4-10.2); CREATININE, serum 0.6 mg/dL (0.57-1.11); TOTAL PROTEIN 5.6 gm/dL (6.2-8.1)
--- NOTE | 2022-06-21 09:45 | NUR ---
Patient sitting up in bed eating breakfast, alert and oriented. Colostomy bag intact, with no content. Picc line in right upper arm in place. Patient denies needs at this time. See process intervention for notes.
[2022-06-21 10:09] LABS: EOSINOPHIL 3 % (0-4); LYMPHOCYTE 20 % (20.0-51.0); NEUTROPHILS 74 % (42.0-75.2); PLATELET ESTIMATE NORMAL (NORMAL)
[2022-06-21 12:00] VITALS: BP 144/55; PULSE 91; TEMP 98
--- NOTE | 2022-06-21 13:04 | NUR ---
Prospecting Driller rounds: Prospecting Driller visit attempted; however, Patient was walking the hallway with someone from physical therapy (black uniforms).
--- NOTE | 2022-06-21 13:39 | NUR ---
SW informed that [facility] contacted nurse of patient and stated they would like updates sent to agency for review. SW faxed all current notes to facility for review. SW will continue to follow.
--- NOTE | 2022-06-21 14:42 | NUR ---
Lunch served but patient refused to eat, stating that she's full and has ensure in room to drink. Patient is not in any distress.
[2022-06-21 15:33] VITALS: BP 108/93; PULSE 88; TEMP 97.8
[2022-06-21 19:57] VITALS: BP 118/46; PULSE 89; TEMP 98.3
[2022-06-21 23:11] VITALS: BP 127/45; PULSE 89; TEMP 98.1
--- NOTE | 2022-06-22 01:42 | NUR ---
SHIFT REPORT FROM SILVERIO ROBERT. PATIENT IN BED ON ROOM ENTRY. HS MEDS PER EMAR. BRYAN TO DD WITH YELLOW OUTPUT. COLOSTOMY WITH GAS AND SOFT BROWN STOOL OUT. DENIES PAIN CONTROL NEEDS. REQUESTS FREQUENT HELP REPOSITIONING.
[2022-06-22 03:37] VITALS: BP 111/55; PULSE 85; TEMP 98.5
[2022-06-22 07:16] LABS: ALBUMIN 2.8 gm/dL (3.4-4.8); BILIRUBIN,TOTAL 0.5 mg/dL (0.2-1.2); CALCIUM 8.4 mg/dL (8.4-10.2); CREATININE, serum 0.64 mg/dL (0.57-1.11); POTASSIUM 4.1 mmol/L (3.5-4.5); TOTAL PROTEIN 5.6 gm/dL (6.2-8.1)
[2022-06-22 08:06] VITALS: BP 124/41; PULSE 86; TEMP 98.9
[2022-06-22] MEDS ORDERED: COZAAR 25MG25 MG/TAB PO (08:21)
--- NOTE | 2022-06-22 08:30 | NUR ---
Patient plunkett DC. Up to the chair for breakfast. minimal complaitns of pain.
--- NOTE | 2022-06-22 09:32 | NUR ---
The clinical team is ready to discharge the patient today. GONZALO met with the patient to review discharge plan. The patient confirms plan to return home with her and recieve home health from [facility] . She states that her will be picking her up this afternoon. GONZALO presented and read the IM form outloud to the patient. The patient verbalized understanding and signed the form. GONZALO provided her with a copy. GONZALO contacted Joe at [facility] and confirmed they are able to accept the patient. GONZALO faxed orders to [facility]. The patient is to discharge back home with her today, 06/22, with home health services from [facility] for PT/OT/halfway. No additional needs at this time.
[2022-06-22 12:16] VITALS: BP 126/59; PULSE 81; TEMP 98.3
--- NOTE | 2022-06-22 14:05 | NUR ---
Patient ready for discharge. Patient has voided since plunkett removal without troubles. Patient assisted to dressed. Patient and spouse given all discharge education. Picc had been removed by AIV. I changed ostomy appliance prior to DC. We reviewed follow up appts. Med rec reviewed with new script & medications stopped. Patient aware to call with any questions or concerns. Cotap sent with patient. Patient wheeled out with all belongings. denies questions or concerns.
== END 2022-06-22 14:13 | disposition home health service (06) | DRG 336 ==
LOC: COL.ER 11:18 → SURG 13:39 → MEDICAL 13:39 → SURG 06-12 11:26
PROVIDERS: Emergency Medicine; Hospitalist; Physician Assistant; Surgery; ADMIT Student in an Organized Health Care Education/Training Program
PROC: 0DN84ZZ Release Small Intestine, Percutaneous Endoscopic Approach (ICD-10-PCS; principal; 2022-06-15)
PROC: 0DNU4ZZ Release Omentum, Percutaneous Endoscopic Approach (ICD-10-PCS; 2022-06-15)
PROC: 0DNL4ZZ Release Transverse Colon, Percutaneous Endoscopic Approach (ICD-10-PCS; 2022-06-15)
PROC: 02H633Z Insertion of Infusion Device into Right Atrium, Percutaneous Approach (ICD-10-PCS; 2022-06-15)
PROC: 8E0W4CZ Robotic Assisted Procedure of Trunk Region, Percutaneous Endoscopic Approach (ICD-10-PCS; 2022-06-15)
PROC: 0JH606Z Insertion of Pacemaker, Dual Chamber into Chest Subcutaneous Tissue and Fascia, Open Approach (ICD-10-PCS; 2022-06-16)
PROC: 02H63JZ Insertion of Pacemaker Lead into Right Atrium, Percutaneous Approach (ICD-10-PCS; 2022-06-16)
PROC: 02HK3JZ Insertion of Pacemaker Lead into Right Ventricle, Percutaneous Approach (ICD-10-PCS; 2022-06-16)
DX: K43.3 Parastomal hernia with obstruction, without gangrene (principal); I45.2 Bifascicular block; J98.11 Atelectasis; K91.89 Other postprocedural complications and disorders of digestive system; K56.7 Ileus, unspecified; Z96.652 Presence of left artificial knee joint; I44.1 Atrioventricular block, second degree; E11.9 Type 2 diabetes mellitus without complications; J44.9 Chronic obstructive pulmonary disease, unspecified; E03.9 Hypothyroidism, unspecified; M19.90 Unspecified osteoarthritis, unspecified site; L40.9 Psoriasis, unspecified; I10 Essential (primary) hypertension; D72.829 Elevated white blood cell count, unspecified; G47.33 Obstructive sleep apnea (adult) (pediatric); F40.240 Claustrophobia; F32.A Depression, unspecified; E66.01 Morbid (severe) obesity due to excess calories; K66.0 Peritoneal adhesions (postprocedural) (postinfection); R09.02 Hypoxemia; Y83.8 Other surgical procedures as the cause of abnormal reaction of the patient, or of later complication, without mention of misadventure at the time of the procedure; Y92.238 Other place in hospital as the place of occurrence of the external cause; E87.6 Hypokalemia; Z79.52 Long term (current) use of systemic steroids; Z90.710 Acquired absence of both cervix and uterus; Z79.890 Hormone replacement therapy; Z88.1 Allergy status to other antibiotic agents; Z88.2 Allergy status to sulfonamides; Z88.8 Allergy status to other drugs, medicaments and biological substances; Z68.33 Body mass index [BMI] 33.0-33.9, adult
CPT/HCPCS: A4314; A9284; C1751; C1785; C1894; C1898; J0330; J0610; J0690; J1100; J1170; J1815; J2060; J2250; J2270; J2405; J2550; J2704; J3010; J3411; J3475; J3480; J7030; J7131; Q9967

== ENCOUNTER 2022-09-29 02:44 | Inpatient (IN) | payer MEDICARE ==
[2022-09-29] VITALS (696 sets, daily range): BP systolic 132–153; BP diastolic 59–80; PULSE 114–121; TEMP 97.7–98.4; O2SAT 77–100
[~2022-09-29] VITALS: Ht 154.9 cm; Wt 83.4 kg
[~2022-09-29 02:44] MED LIST changes: +COZAAR 25MG25 MG/TAB PO; -SYNTHROID0.088 MG/T PO; +SYNTHROID0.1 MG/TAB PO; +ZOLOFT 50MG50 MG PO
[2022-09-29 03:31] LABS: BASO # 0.1 K/mm3 (0.0-0.2); BASO % 0.4 % (0.0-2.0); GRAN # 11.7 K/mm3 (1.4-6.5); GRAN % 84.8 % (42.2-75.2); HEMOGLOBIN 15.5 g/dl (12.5-16.0); LYMPH # 0.9 K/mm3 (1.2-3.4); LYMPH % 6.5 % (20.0-51.0); MEAN CELL VOLUME 92 fl (80.0-100.0); MEAN CORPUSCULAR HEMOGLOBIN 31 pg (27-31); MEAN CORPUSCULAR HGB CONC 34 g/dl (33.0-37.0); MEAN PLATELET VOLUME 9.6 fl (7.4-10.4); MONO # 1.1 K/mm3 (0.1-0.6); MONO % 8.1 % (1.7-9.3); PLATELET COUNT 288 K/mm3 (130-400); RED BLOOD COUNT 4.99 M/mm3 (4.10-5.30); REDCELL DISTRIBUTION WIDTH-CV 12.9 % (11.5-14.5)
[2022-09-29 03:52] LABS: ALBUMIN 3.9 gm/dL (3.4-4.8); BILIRUBIN,TOTAL 0.7 mg/dL (0.2-1.2); CALCIUM 9.9 mg/dL (8.4-10.2); CREATININE, serum 0.93 mg/dL (0.57-1.11); POTASSIUM 3.7 mmol/L (3.5-4.5); TOTAL PROTEIN 7.6 gm/dL (6.2-8.1)
[2022-09-29 03:57] LABS: TROPONIN-I 0.027 ng/mL (0.00-0.033)
[2022-09-29 04:58] LABS: COLLECTION METHOD CLEAN CATCH
[2022-09-29 05:07] LABS: MUCOUS Present (NOT PRESENT); URINE BACTERIA Rare /hpf (NONE SEEN); URINE RBC 0-2 /hpf (0-2)
[2022-09-29 05:08] LABS: PH 5.5 (5.0-8.5); URINE APPEARANCE Clear (CLEAR/HAZY); URINE BLOOD Negative (NEGATIVE); URINE COLOR Yellow (YELLOW); URINE GLUCOSE Negative (NEGATIVE); URINE KETONE TRACE (NEGATIVE); URINE NITRATE Negative (NEGATIVE); URINE PROTEIN(semi-quant) 2+ (NEGATIVE); URINE UROBILINOGEN 0.2 E.U/dL (0.2-1.0)
--- NOTE | 2022-09-29 05:18 | NUR ---
Received report from ED nurse
--- NOTE | 2022-09-29 05:36 | NUR ---
Patient arrives to ICU room 6 via ED stretcher. Patient is transferred to ICU bed via draw sheet. She is alert and oriented. Initial vitals within normal limits; she arrives receiving 4L oxygen via nasal cannula, satting 91%. No IVF or medications infusing. 14Fr NG to R nare located at 59cm to LIS with light brown output. Nieves catheter to dependent drainage. She reports abdominal pain 10/10 exacerbated by movement.
--- NOTE | 2022-09-29 06:00 | NUR ---
Belongings include a pair of glasses, a gold-colored wedding band, street clothes, a purse and wallet, and a cell phone and supervisor record press. She reports wearing bilateral hearing aids regularly but that they are not with her at this time. She denies having dentures, partials, or plates.
--- NOTE | 2022-09-29 07:37 | NUR ---
PT STATED THAT SHE DOES NOT KNOW THE MEDICATIONS THAT SHE TAKES AND ALL HER MEDICATIONS ARE AT HOME. BEDSIDE STATED HE CAN GO HOME AND RETRIEVE THEM, BUT HE IS GOING TO REST AND AT THIS TIME, DOES NOT KNOW WHEN HE WILL BE BACK TO THE ICU.
[2022-09-29] MEDS ORDERED: GENTLE LAXATIVE5 MG PO (10:21)
[2022-09-29] MEDS ORDERED: FLEXERIL 1010 MG/TAB PO (10:22)
[2022-09-29] MEDS ORDERED: BENTYL 10MG10 MG/CAP PO (10:22)
[2022-09-29] MEDS ORDERED: SINGULAIR 110 MG/TAB PO (10:23)
[2022-09-29] MEDS ORDERED: REGLAN 10MG10 MG/TAB PO (10:23)
--- NOTE | 2022-09-29 11:35 | NUR ---
CALLED DR. DIAZ FOR UPDATE ON ROUNDING. DR. DIAZ WILL ROUND ON PT WITHIN THE NEXT COUPLE OF HOURS.
--- NOTE | 2022-09-29 13:33 | NUR ---
SW met with patient at bedside to complete intake. Patient reports that she lives at home with her Jomar ([phone]) in [facility]. Patient reports that Jomar has to help her with all of her ADL's at home. She utilizes a walker to assist with ambulations. Patient denies currently having any home health services.She does not require home oxygen. PCP is and she utilizes [facility] pharmacy for prescriptions.Patient does have a DPOA-HC established listing her nephew Wilder ([phone]) as her agent and a copy can be located in her EMR.
--- NOTE | 2022-09-29 15:15 | NUR ---
CHANGED NG CANNISTER.
[2022-09-29 15:52] LABS: HEMATOCRIT 43.2 % (37.0-47.0); HEMOGLOBIN 14.6 g/dl (12.5-16.0); MEAN CELL VOLUME 92 fl (80.0-100.0); MEAN CORPUSCULAR HEMOGLOBIN 31 pg (27-31); MEAN CORPUSCULAR HGB CONC 34 g/dl (33.0-37.0); MEAN PLATELET VOLUME 9.7 fl (7.4-10.4); RED BLOOD COUNT 4.72 M/mm3 (4.10-5.30); REDCELL DISTRIBUTION WIDTH-CV 13.1 % (11.5-14.5)
[2022-09-29 16:06] LABS: ALBUMIN 3.4 gm/dL (3.4-4.8); BILIRUBIN,TOTAL 0.8 mg/dL (0.2-1.2); CREATININE, serum 0.96 mg/dL (0.57-1.11); TOTAL PROTEIN 6.8 gm/dL (6.2-8.1)
[2022-09-29 16:37] LABS: ANISOCYTOSIS 1+; BAND 50 % (0-10); LYMPHOCYTE 10 % (20.0-51.0); METAMYELOCYTE 3 % (0-0); NEUTROPHILS 33 % (42.0-75.2); PLATELET ESTIMATE NORMAL (NORMAL)
[2022-09-29 16:38] LABS: PLATELET COUNT 262 K/mm3 (130-400)
--- NOTE | 2022-09-29 18:55 | NUR ---
Pt to medical floor, room 358. Call light within reach.
[2022-09-30 00:16] VITALS: BP 139/94; PULSE 117; TEMP 98.8
--- NOTE | 2022-09-30 02:39 | NUR ---
PATIENT ASSESSED. SHE ARRIVED JUST PRIOR TO SHIFT CHANGE. NG TUBE IN PLACE AND PUT ON LIS. BRYAN WITH JORGE OUTPUT. IV SITE CHANGED FROM LEFT FOREARM TO RIGHT FOREARM. CONTINUES ON LR @75. OSTOMY WITH NO OUTPUT. BOWEL SOUNDS HYPOACTIVE. SHE IS IN THE HIGH 80'S ON RA, PLACED ON 2L AND SATING AROUND 92-94%. 6/10 PAIN NOTED TO ABDOMEN. NG TUBE CLOGGED BUT EASILY UNCLOGGED AND HAVING DARK GREEN OUTPUT. GIVEN MORPHINE AND ZOFRAN 1X. BED IN LOWEST POSITION. CALL LIGHT IN REACH. SHE IS SLEEPING COMFORTABLY. NO NEEDS AT THIS TIME.
[2022-09-30 03:14] VITALS: BP 138/62; PULSE 115; TEMP 98.2
[2022-09-30 06:29] LABS: HEMOGLOBIN 14.1 g/dl (12.5-16.0); MEAN CELL VOLUME 92 fl (80.0-100.0); MEAN CORPUSCULAR HEMOGLOBIN 31 pg (27-31); MEAN CORPUSCULAR HGB CONC 34 g/dl (33.0-37.0); MEAN PLATELET VOLUME 10.3 fl (7.4-10.4); PLATELET COUNT 264 K/mm3 (130-400); RED BLOOD COUNT 4.55 M/mm3 (4.10-5.30); REDCELL DISTRIBUTION WIDTH-CV 13.2 % (11.5-14.5)
[2022-09-30 08:07] LABS: CALCIUM 9.1 mg/dL (8.4-10.2); CREATININE, serum 0.86 mg/dL (0.57-1.11); MAGNESIUM 1.9 mg/dL (1.6-2.6); POTASSIUM 3.7 mmol/L (3.5-4.5)
[2022-09-30 08:29] LABS: BAND 46 % (0-10); LYMPHOCYTE 12 % (20.0-51.0); NEUTROPHILS 38 % (42.0-75.2); TOXIC GRANULATION PRESENT
[2022-09-30 08:30] VITALS: BP 117/69; PULSE 113; TEMP 97.5
[2022-09-30 08:30] LABS: PLATELET ESTIMATE NORMAL (NORMAL)
[2022-09-30] MEDS ORDERED: PROAIR HFA0.09 MG/AC IH (10:07)
[2022-09-30 12:12] VITALS: BP 138/61; PULSE 113; TEMP 97.5
--- NOTE | 2022-09-30 13:41 | NUR ---
Stringer Up Soldering Machine spoke with Hospitalist about ordering PT/OT.
[2022-09-30 16:56] VITALS: BP 132/58; PULSE 114; TEMP 98.4
--- NOTE | 2022-09-30 17:33 | NUR ---
PATIENT HAS BEEN NPO TODAY. NG OUTPUT WAS 900ML BROWN FLUID. PATIENT IS AXOX4. DROWSY. VSS. RADIOLOGY PERFORMING UGI SCAN FOR SBO. PATIENT IS TOLERATING THE PROCEDURE WELL. HAS NOT COMPLAINED OF PAIN THIS SHIFT, BUT KNOWS SHE CAN HAVE MORPHINE NEEDED. ON LR @75ML. WILL CONTINUE TO MONITOR
[2022-09-30 19:54] VITALS: BP 136/65; PULSE 103; TEMP 98.5
[2022-10-01] VITALS (8 sets, daily range): BP systolic 106–151; BP diastolic 64–93; PULSE 72–104; TEMP 98.3–98.6
--- NOTE | 2022-10-01 00:07 | NUR ---
Patient assessed around 1944. Denied having pain and discomfort. Patient denied having pain and discomfort. NG tube was clamped since dayshift. Radiologist stated at beginning of shift that no more CTs were needed tonight. Called to confirm with Dr. Thrasher, who stated that was fine. Asked about NG tube, and stated to leave it clamped if able to tolerate it. Around 2299, patient stated that she was having some abdominal pain. Turned on NG tube suction at that time, and got 900 mls of green output within 5 minutes. Left on low intermittent suction. Voices no further questions, needs, or concerns at this time. In bed with call light within reach.
--- NOTE | 2022-10-01 05:59 | NUR ---
Patient has had 1400 mls of output from NG tube since turning back on to low intermittent suction at 2300 due to nausea and upset stomach. Output is dark green. Patient voices no questions, needs, or concerns at this time. In bed with call light within reach. Bed alarm on.
[2022-10-01 06:52] LABS: BASO % 0.4 % (0.0-2.0); EOS % 0.4 % (0.0-4.0); GRAN # 8.9 K/mm3 (1.4-6.5); GRAN % 79.2 % (42.2-75.2); HEMATOCRIT 41.1 % (37.0-47.0); HEMOGLOBIN 13.5 g/dl (12.5-16.0); LYMPH # 1.2 K/mm3 (1.2-3.4); LYMPH % 10.3 % (20.0-51.0); MEAN CELL VOLUME 94 fl (80.0-100.0); MEAN CORPUSCULAR HEMOGLOBIN 31 pg (27-31); MEAN CORPUSCULAR HGB CONC 33 g/dl (33.0-37.0); MEAN PLATELET VOLUME 10.2 fl (7.4-10.4); MONO % 9.2 % (1.7-9.3); PLATELET COUNT 247 K/mm3 (130-400); RED BLOOD COUNT 4.37 M/mm3 (4.10-5.30); REDCELL DISTRIBUTION WIDTH-CV 13.1 % (11.5-14.5)
[2022-10-01 07:08] LABS: CREATININE, serum 0.7 mg/dL (0.57-1.11); MAGNESIUM 2.2 mg/dL (1.6-2.6); POTASSIUM 3.1 mmol/L (3.5-4.5)
--- NOTE | 2022-10-01 07:34 | NUR ---
PATIENT SLEEPING IN BED, BED ALARM ON. PATIENT AROUSABLE TO NAME. PATIENT DENIES ANY NEEDS OR COMPLAITNS AT THIS TIME. NGTUBE TO LOW INTERMITTENT SUCTION. IVF FLUIDS INFUSING. CALL LIGHT WITH IN REACH.
--- NOTE | 2022-10-01 08:45 | NUR ---
PATIENT AWAKE AND ALERT. COMPLAINING OF ABD PAIN, "ALL OVER." PER NUMERIC SCALE PATIENT SAID SHE IS AT LESS THAN A 1. NGTUBE STILL TO LIS. [facility]. IV FLUIDS INFUSING.
--- NOTE | 2022-10-01 09:42 | NUR ---
UPDATED ON PATIENT STATUS AND NGTUBE MINIMAL OUTPUT FOR THIS RN SHIFT SO FAR. IV ZOFRAN JUST ADMINISTERED FOR COMPLAINT OF NAUSEA. CALL LIGHT WITHIN REACH. BED ALARM ON.
--- NOTE | 2022-10-01 14:15 | NUR ---
PATIENT COMPLAINED SHE AHS COUGHED A FEW TIMES. NGT AT 54 CM, HAS PUSHED OUT SOME FROM THIS AM. PER DR JOE CHAVEZ SHOWS PATIENTS NGTUBE NEEDS TO BE ADVANCED 7-8 CM. NGTUBE ADVANCED TO 62. OUTPUT ADEQUATE, ANOTHER RN VERIFIED.
--- NOTE | 2022-10-01 15:45 | NUR ---
PER LEIGH ANN BYNUM, XR USED TO CONFIRM PICC PLACEMENT SHOWS NGTUBE NOT IN THE RIGHT PLACE, AND RECCOMENDED TO REMOVE NGTUBE AND REPLACE. UPON ENTERING ROOM. PATIENTS NGTUBE IS AT 35. PATIENT DENEIS PULLING NGTUBE AT ANY TIME. NGTUBE REMOVED. NEW 14F NGTUBE AT 55CM, HOOKED UP TO LIS, USCCESSFUL OUTPUT. PATIETN TOLERATED WELL.
--- NOTE | 2022-10-01 19:05 | NUR ---
PATIENT COLOSTOMY CHANGED. BRYNA PATENT AND DRAINING. NGTUBE STILL AT 55CM. PATIENT AWAKE AND ALERT, DENIES ANY NEEDS OR COMPLAINTS AT THIS TIME.
--- NOTE | 2022-10-01 21:30 | NUR ---
Patient assessed around 1999. Alert and oriented, and able to make needs known. Has PICC to RUE with TPN & Lipids runnning per orders. NG tube in place, low intermittent suction per orders. At 55 cm sadi, with green output. Denies nausea and upset stomach. Did complain of back pain, and given PRN Morphine as requested. Denies SOB and dyspnea. On oxygen at 2 L/min via NC. Voices no questions, needs, or concerns at this time. In bed with call light within reach. High fall risk precautions in place. Bed alarm on.
[2022-10-02 03:52] VITALS: BP 150/71; PULSE 99; TEMP 98.2
--- NOTE | 2022-10-02 05:42 | NUR ---
Patient given PRN Morphine twice this shift for pain as requested, which patient reports was effective. NG tube remains at 55 cm sadi, has had a total of 350 mls of dark green output this shift. Denies nausea and upset stomach. Continues on TPN per orders. Voices no questions, needs, or concerns at this time. In bed with call light within reach. High fall risk precautions in place.
[2022-10-02 06:30] LABS: HEMATOCRIT 38.6 % (37.0-47.0); HEMOGLOBIN 12.8 g/dl (12.5-16.0); MEAN CELL VOLUME 95 fl (80.0-100.0); MEAN CORPUSCULAR HEMOGLOBIN 31 pg (27-31); MEAN CORPUSCULAR HGB CONC 33 g/dl (33.0-37.0); MEAN PLATELET VOLUME 9.7 fl (7.4-10.4); PLATELET COUNT 232 K/mm3 (130-400); RED BLOOD COUNT 4.07 M/mm3 (4.10-5.30); REDCELL DISTRIBUTION WIDTH-CV 12.7 % (11.5-14.5)
[2022-10-02 06:57] LABS: CALCIUM 8.7 mg/dL (8.4-10.2); CREATININE, serum 0.67 mg/dL (0.57-1.11); MAGNESIUM 2.1 mg/dL (1.6-2.6); PHOSPHOROUS 2.5 mg/dL (2.3-4.7); POTASSIUM 3.8 mmol/L (3.5-4.5)
--- NOTE | 2022-10-02 07:00 | NUR ---
PATIENT RESTING IN BED, AROUSABLE TO NAME. NGTUBE STILL AT 55CM AND ON LIS. BRYAN CATHETER SECURED WITH STAT LOCK AND DRAINING TO GRAVITY. COLOSTOMY BAG INTACT WITH NO LEAKS. TPN INFUSING AT ORDERED RATE. PATIENT VOICES NO NEEDS O CONCERNS AT THIS TIME. BED ALARM ON, CALL LIGHT WITH IN REACH.
[2022-10-02 07:26] VITALS: BP 146/55; PULSE 95; TEMP 97.4
[2022-10-02 07:34] LABS: BAND 9 % (0-10); BASOPHIL 1 % (0-2); EOSINOPHIL 1 % (0-4); LYMPHOCYTE 12 % (20.0-51.0); METAMYELOCYTE 1 % (0-0); MYELOCYTE 1 % (0-0); NEUTROPHILS 70 % (42.0-75.2); PLATELET ESTIMATE NORMAL (NORMAL)
--- NOTE | 2022-10-02 10:45 | NUR ---
PER MISA BRYAN TO BE REMOVED. THIS RN WAS ASSURED BY PATIENT THAT SHE KNOWS WHEN SHE NEEDS TO URINATE AND HAS NO ISSUES WITH URGENCY OR INCONTINENCE.
--- NOTE | 2022-10-02 10:59 | NUR ---
BRYAN CATHETER DISCONTINUED. PATIENT TOLERATED WELL.
--- NOTE | 2022-10-02 11:12 | NUR ---
PATIENT REFUSING PHYSICAL THERAPY DESPITE ECOURAGEMENT TO WORK WITH PT.
[2022-10-02 11:41] VITALS: BP 132/63; PULSE 88; TEMP 98.1
--- NOTE | 2022-10-02 12:40 | NUR ---
Health And Safety Advisor met with patient to review discharge plan. Patient is not interested in SNF placement and wants to return home at time of discharge. Patient is open to Home Health services. Patient has used [facility] in the past and would like to use them again. SW contacted patient's , Jomar and provided update. SW contacted Joe at [facility] and faxed referral. Discharge Plan: Home with [facility]
--- NOTE | 2022-10-02 12:46 | NUR ---
Patient has been in a pleasant mood this shift. Shift assessment completed this morning. PICC line flushed with 10ml and remains patent. TPN running continuously at 42ml/hr at this time. NG tube remains in place at 55cm. NG output is minimal at less than 100ml. Nieves removed per orders. Patient has attempted to urinate in bedpan once since removal, but was unsuccessful. Bed bath provided. Patient is currently sleeping in bed with call light in reach and fall precautions in place.
--- NOTE | 2022-10-02 13:00 | NUR ---
PATIENT ENCOURAGED BY BOX SPRING UPHOLSTERER TO USE BEDSIDE COMMODE, HOWEVER REFUSED SO BEDPAN WAS USED. BED ALARM ON, CALL LIGHT WITH IN REACH. NGTUBE STILL AT 55CM AND LIS.
--- NOTE | 2022-10-02 13:15 | NUR ---
PATIENT CHANGED TO AIR MATRESS BED TO PREVENT PRESSURE ULCERS.
[2022-10-02 15:47] VITALS: BP 152/63; BP 1852/63; PULSE 83; TEMP 98.3
--- NOTE | 2022-10-02 17:57 | NUR ---
TOTAL LINEN CHANGE COMPLETED. PATIENT ENCOURAGED TO SIT IN CHAIR. YRAN REFUSED THIS WELL STANDING TO COMPLETE LINEN CHANGE. UNSURE IF PATIENT IS CONTINENT OF URINE EVEN THOUGH EARLIER STATED SHE WAS.
[2022-10-02 20:33] VITALS: BP 146/74; PULSE 87; TEMP 97.7
[2022-10-03] VITALS (7 sets, daily range): BP systolic 124–155; BP diastolic 53–68; PULSE 81–100; TEMP 97.4–98.8
--- NOTE | 2022-10-03 01:52 | NUR ---
NURSING SHIFT ASSESSMENT COMPLETED. THE PATIENT DENIED PAIN UPON ASSESSMENT. THE PLAN OF CARE WAS DISCUSSED. CALL LIGHT WITHIN REACH. WILL MONITOR.
[2022-10-03 06:02] LABS: HEMATOCRIT 39.8 % (37.0-47.0); HEMOGLOBIN 12.6 g/dl (12.5-16.0); MEAN CELL VOLUME 97 fl (80.0-100.0); MEAN CORPUSCULAR HEMOGLOBIN 31 pg (27-31); MEAN CORPUSCULAR HGB CONC 32 g/dl (33.0-37.0); MEAN PLATELET VOLUME 9.4 fl (7.4-10.4); PLATELET COUNT 223 K/mm3 (130-400); RED BLOOD COUNT 4.12 M/mm3 (4.10-5.30); REDCELL DISTRIBUTION WIDTH-CV 12.5 % (11.5-14.5)
[2022-10-03 06:15] LABS: CALCIUM 8.7 mg/dL (8.4-10.2); CREATININE, serum 0.65 mg/dL (0.57-1.11); MAGNESIUM 1.9 mg/dL (1.6-2.6); PHOSPHOROUS 3.7 mg/dL (2.3-4.7); POTASSIUM 3.8 mmol/L (3.5-4.5)
[2022-10-03 06:28] LABS: BAND 8 % (0-10); EOSINOPHIL 2 % (0-4); LYMPHOCYTE 12 % (20.0-51.0); METAMYELOCYTE 1 % (0-0); MYELOCYTE 1 % (0-0); NEUTROPHILS 71 % (42.0-75.2); PLATELET ESTIMATE NORMAL (NORMAL)
[2022-10-03 06:29] LABS: HYPOCHROMIA 2+
--- NOTE | 2022-10-03 09:27 | NUR ---
Pt assessment complete. Pt is laying in bed with eyes closed, she arouses to voice. She is partially oriented, unable to say where she is, but easily reoriented. Pt reports some pain to abdomen 9/10, PRN pain medication to be given, reports it radiates into her breasts. Pt denies any nausea or passing gas. +BS. Brown stool present to colostomy. Specialty mattress in place. Will continue to monitor.
--- NOTE | 2022-10-03 18:48 | NUR ---
Uneventful day, patient requests to use the bedpan vs using BSC. NG still to LIS. Output to colostomy bag. No needs at this time. Call light within reach.
--- NOTE | 2022-10-04 02:31 | NUR ---
NURSING SHIFT ASSESSMENT COMPLETED. THE PATIENT IS ALERT AND ORIENTED AND APPROPRIATE. EVENING MEDICATIONS WERE DISCUSSED WELL THE PLAN OF CARE. NO NEEDS AT THIS TIME. THE PATIENT WAS REPOSITIONED. WILL MONITOR.
[2022-10-04 03:19] VITALS: BP 146/58; PULSE 82; TEMP 98.4
[2022-10-04 06:35] LABS: HEMATOCRIT 39.1 % (37.0-47.0); HEMOGLOBIN 12.4 g/dl (12.5-16.0); MEAN CELL VOLUME 95 fl (80.0-100.0); MEAN CORPUSCULAR HEMOGLOBIN 30 pg (27-31); MEAN CORPUSCULAR HGB CONC 32 g/dl (33.0-37.0); MEAN PLATELET VOLUME 9.3 fl (7.4-10.4); PLATELET COUNT 236 K/mm3 (130-400); REDCELL DISTRIBUTION WIDTH-CV 12.5 % (11.5-14.5)
[2022-10-04 06:57] LABS: C-REACTIVE PROTEIN 8.32 mg/dL (0.00-0.50); CALCIUM 8.7 mg/dL (8.4-10.2); CREATININE, serum 0.64 mg/dL (0.57-1.11); MAGNESIUM 1.8 mg/dL (1.6-2.6); PHOSPHOROUS 3.3 mg/dL (2.3-4.7); POTASSIUM 3.7 mmol/L (3.5-4.5)
[2022-10-04 07:19] LABS: BAND 10 % (0-10); EOSINOPHIL 4 % (0-4); LYMPHOCYTE 9 % (20.0-51.0); METAMYELOCYTE 3 % (0-0); MYELOCYTE 1 % (0-0); NEUTROPHILS 67 % (42.0-75.2); PLATELET ESTIMATE NORMAL (NORMAL)
[2022-10-04 08:01] VITALS: BP 152/61; PULSE 91; TEMP 97.7
--- NOTE | 2022-10-04 09:38 | NUR ---
Pt assessment complete. Pt is laying in bed upon entry, she is A/O x4. Her breathing is even and unlabored on 2L O2 via NC. No SOB. Pt reports pain to middle upper abdomen 10/10, PRN pain medications administered. NG tube clamped at this time, and patient trying clear liquids. Encouraged patient to get up into the recliner today, she is agreeable to do this with therapy later as she was "sleeping" when they came by earlier. POC discussed with her, no needs at this time.
[2022-10-04 12:05] VITALS: BP 146/61; PULSE 84; TEMP 98.2
[2022-10-04 15:25] VITALS: BP 146/59; PULSE 87; TEMP 98.7
--- NOTE | 2022-10-04 18:32 | NUR ---
Pt tolerated clear liquids without issues. No increase in pain or nausea. Pt did get up to the recliner for a few hours this afternoon. Decreased oxygen needs to 1L O2 via NC. No needs at this time. Call light within reach.
[2022-10-04 19:40] VITALS: BP 151/54; PULSE 84; TEMP 98.9
[2022-10-04 23:40] VITALS: BP 154/100; PULSE 91; TEMP 98.6
[2022-10-05 03:36] VITALS: BP 152/68; PULSE 94; TEMP 97.5
--- NOTE | 2022-10-05 03:48 | NUR ---
NURSING SHIFT ASSESSMENT COMPLETED. THE PATIENT IS REPORTING GENERALIZED PAIN. PRN PAIN MEDICATION WILL BE PROVIDED. THE PATIENT WAS REPOSITIONED TO HER COMFORT AND HER CLEAR LIQUID DIET TRAY PLACED IN FRONT OF HER SO SHE COULD EAT. WILL MONITOR.
[2022-10-05 06:01] LABS: HEMATOCRIT 37.2 % (37.0-47.0); HEMOGLOBIN 12.5 g/dl (12.5-16.0); MEAN CELL VOLUME 91 fl (80.0-100.0); MEAN CORPUSCULAR HEMOGLOBIN 31 pg (27-31); MEAN CORPUSCULAR HGB CONC 34 g/dl (33.0-37.0); MEAN PLATELET VOLUME 9.3 fl (7.4-10.4); PLATELET COUNT 226 K/mm3 (130-400); RED BLOOD COUNT 4.07 M/mm3 (4.10-5.30); REDCELL DISTRIBUTION WIDTH-CV 12.4 % (11.5-14.5)
[2022-10-05 06:20] LABS: CALCIUM 8.7 mg/dL (8.4-10.2); CREATININE, serum 0.66 mg/dL (0.57-1.11); PHOSPHOROUS 3.1 mg/dL (2.3-4.7); POTASSIUM 4.5 mmol/L (3.5-4.5)
[2022-10-05 06:41] LABS: BAND 7 % (0-10); EOSINOPHIL 1 % (0-4); LYMPHOCYTE 10 % (20.0-51.0); METAMYELOCYTE 1 % (0-0); MYELOCYTE 1 % (0-0); NEUTROPHILS 72 % (42.0-75.2); PLATELET ESTIMATE NORMAL (NORMAL)
[2022-10-05 06:42] LABS: HYPOCHROMIA 1+
[2022-10-05 08:15] VITALS: BP 148/65; PULSE 89; TEMP 98.1
--- NOTE | 2022-10-05 10:30 | NUR ---
NGTUBE REMOVED WITH NO ISSUES. PATIENT TOLERATED WELL.
[2022-10-05 11:32] VITALS: BP 156/65; PULSE 87; TEMP 97.9
[2022-10-05 16:00] VITALS: BP 151/68; PULSE 89; TEMP 98.1
[2022-10-06 00:25] VITALS: BP 155/62; PULSE 91; TEMP 98
[2022-10-06 04:29] VITALS: BP 125/55; PULSE 88; TEMP 97.4
[2022-10-06 05:30] LABS: HEMOGLOBIN 11.7 g/dl (12.5-16.0); MEAN CELL VOLUME 93 fl (80.0-100.0); MEAN CORPUSCULAR HEMOGLOBIN 31 pg (27-31); MEAN CORPUSCULAR HGB CONC 33 g/dl (33.0-37.0); MEAN PLATELET VOLUME 9.2 fl (7.4-10.4); PLATELET COUNT 220 K/mm3 (130-400); RED BLOOD COUNT 3.76 M/mm3 (4.10-5.30); REDCELL DISTRIBUTION WIDTH-CV 12.6 % (11.5-14.5)
[2022-10-06 05:37] LABS: HEMATOCRIT 35.1 % (37.0-47.0)
[2022-10-06 05:49] LABS: CALCIUM 8.4 mg/dL (8.4-10.2); CREATININE, serum 0.66 mg/dL (0.57-1.11); POTASSIUM 4.1 mmol/L (3.5-4.5)
[2022-10-06 06:14] LABS: BAND 8 % (0-10); EOSINOPHIL 4 % (0-4); LYMPHOCYTE 15 % (20.0-51.0); METAMYELOCYTE 3 % (0-0); NEUTROPHILS 66 % (42.0-75.2); PLATELET ESTIMATE NORMAL (NORMAL)
[2022-10-06 07:23] VITALS: BP 143/47; PULSE 87; TEMP 98.3
[2022-10-06 11:09] VITALS: BP 130/63; PULSE 81; TEMP 97.8
--- NOTE | 2022-10-06 13:53 | NUR ---
The PA notified GONZALO that they would recommend rehab for the patient upon discharge. The earliest the patient may be able to discharge is on Wednesday. She is currently still on TPN. GONZALO met with the patient to discuss their recommendation. The patient declined SNF. GONZALO discussed the option of going to a swing bed, instead of a SNF in the halfway setting, and educated her on how this is for a short time. The patient adamantly refused. She states that she is going straight home from the hospital and wants to resume home health. SW inquired if she is able to and how she would get up to go to the restroom right now, if needed. The patient states that she can do all tasks needed in the bathroom and that home health can also assist. GONZALO updated the PA.
[2022-10-06 15:58] VITALS: BP 145/61; PULSE 78; TEMP 97.7
[2022-10-06 19:46] VITALS: BP 137/62; PULSE 80; TEMP 98.3
[2022-10-07] VITALS (7 sets, daily range): BP systolic 121–139; BP diastolic 52–66; PULSE 76–91; TEMP 97.5–98.4
[2022-10-07 07:06] LABS: HEMATOCRIT 37.1 % (37.0-47.0); HEMOGLOBIN 12.3 g/dl (12.5-16.0); MEAN CELL VOLUME 92 fl (80.0-100.0); MEAN CORPUSCULAR HEMOGLOBIN 31 pg (27-31); MEAN CORPUSCULAR HGB CONC 33 g/dl (33.0-37.0); MEAN PLATELET VOLUME 9.5 fl (7.4-10.4); PLATELET COUNT 258 K/mm3 (130-400); RED BLOOD COUNT 4.02 M/mm3 (4.10-5.30); REDCELL DISTRIBUTION WIDTH-CV 12.7 % (11.5-14.5)
[2022-10-07 08:53] LABS: ALBUMIN 2.9 gm/dL (3.4-4.8); BILIRUBIN,TOTAL 0.2 mg/dL (0.2-1.2); CALCIUM 8.6 mg/dL (8.4-10.2); CREATININE, serum 0.69 mg/dL (0.57-1.11); MAGNESIUM 1.8 mg/dL (1.6-2.6); PHOSPHOROUS 3.7 mg/dL (2.3-4.7); TOTAL PROTEIN 6.3 gm/dL (6.2-8.1)
[2022-10-07 09:17] LABS: BAND 16 % (0-10); EOSINOPHIL 2 % (0-4); LYMPHOCYTE 17 % (20.0-51.0); METAMYELOCYTE 1 % (0-0); MYELOCYTE 1 % (0-0); NEUTROPHILS 59 % (42.0-75.2)
[2022-10-07 09:24] LABS: PLATELET ESTIMATE NORMAL (NORMAL)
[2022-10-08 03:38] VITALS: BP 128/49; PULSE 88; TEMP 97.6
[2022-10-08 05:57] LABS: HEMOGLOBIN 11.2 g/dl (12.5-16.0); MEAN CELL VOLUME 95 fl (80.0-100.0); MEAN CORPUSCULAR HEMOGLOBIN 31 pg (27-31); MEAN CORPUSCULAR HGB CONC 32 g/dl (33.0-37.0); MEAN PLATELET VOLUME 9.3 fl (7.4-10.4); PLATELET COUNT 262 K/mm3 (130-400); RED BLOOD COUNT 3.67 M/mm3 (4.10-5.30); REDCELL DISTRIBUTION WIDTH-CV 12.4 % (11.5-14.5)
[2022-10-08 06:04] LABS: HEMATOCRIT 34.8 % (37.0-47.0)
[2022-10-08 06:15] LABS: ALBUMIN 2.7 gm/dL (3.4-4.8); BILIRUBIN,TOTAL 0.2 mg/dL (0.2-1.2); CALCIUM 8.2 mg/dL (8.4-10.2); CREATININE, serum 0.65 mg/dL (0.57-1.11); TOTAL PROTEIN 5.8 gm/dL (6.2-8.1)
[2022-10-08 06:19] LABS: BAND 11 % (0-10); EOSINOPHIL 2 % (0-4); HYPOCHROMIA 1+; LYMPHOCYTE 19 % (20.0-51.0); METAMYELOCYTE 2 % (0-0); MYELOCYTE 1 % (0-0); NEUTROPHILS 58 % (42.0-75.2); PLATELET ESTIMATE NORMAL (NORMAL)
[2022-10-08 08:00] VITALS: BP 125/50; PULSE 85; TEMP 97.7
--- NOTE | 2022-10-08 08:00 | NUR ---
Patient is resting in bed, alert and oriented, receiving TPN per orders. Assessment completed. Complains of food and diet. Tolerating po. No other needs at this time. Call light within reach.
[2022-10-08 11:01] VITALS: BP 129/53; PULSE 82; TEMP 98.2
[2022-10-08 16:00] VITALS: BP 132/58; PULSE 86; TEMP 98
--- NOTE | 2022-10-08 16:00 | NUR ---
TPN was discontinued per orders.
--- NOTE | 2022-10-08 18:36 | NUR ---
Patient tolerating po diet. States she does not like the food and that's why she does not eat very well. Complained of some headache, tylenol provided. Report will be given to khushbu ROBERT.
[2022-10-08 21:09] VITALS: BP 138/45; PULSE 85; TEMP 97.8
[2022-10-09 00:17] VITALS: BP 129/61; PULSE 83; TEMP 97.6
[2022-10-09 03:32] VITALS: BP 148/46; PULSE 82; TEMP 97.9
[2022-10-09 07:01] LABS: MEAN CELL VOLUME 91 fl (80.0-100.0); MEAN CORPUSCULAR HEMOGLOBIN 31 pg (27-31); MEAN CORPUSCULAR HGB CONC 34 g/dl (33.0-37.0); MEAN PLATELET VOLUME 9.9 fl (7.4-10.4); PLATELET COUNT 289 K/mm3 (130-400); RED BLOOD COUNT 3.89 M/mm3 (4.10-5.30); REDCELL DISTRIBUTION WIDTH-CV 12.7 % (11.5-14.5)
[2022-10-09 07:06] LABS: HEMATOCRIT 35.3 % (37.0-47.0)
[2022-10-09 07:22] LABS: CALCIUM 8.5 mg/dL (8.4-10.2); CREATININE, serum 0.68 mg/dL (0.57-1.11); PHOSPHOROUS 2.9 mg/dL (2.3-4.7)
[2022-10-09 07:43] VITALS: BP 142/50; PULSE 83; TEMP 98
--- NOTE | 2022-10-09 09:58 | NUR ---
The patient is to discharge back home with her today, 10/09, with home health services for penitentiary/PT/OT from [facility] . GONZALO notified and faxed orders to Joe at [facility] . GONZALO followed up with the patient and presented and read the IM form outloud to her. The patient verbalized understanding and agreement to discharge today. She signed the form and GONZALO provided her with a copy. No additional needs at this time.
[2022-10-09 10:15] LABS: BAND 1 % (0-10); LYMPHOCYTE 17 % (20.0-51.0); NEUTROPHILS 77 % (42.0-75.2)
[2022-10-09 10:16] LABS: PLATELET ESTIMATE NORMAL (NORMAL)
--- NOTE | 2022-10-09 12:30 | NUR ---
PATIENT GIVEN DISCHARGE INSTRUCTIONS AND EDUCAITON. PICC LINE REMOVED EARLIER BY TEAM. PICC LINE REMOVAL SITE CLEAN DRY AND INTACT. POST PICC REMOVAL INSTRUCTIONS REFRESHED WITH PATIENT.
--- NOTE | 2022-10-09 13:32 | NUR ---
PATIENT DRESS[facility] AND [facility] SHE LEFT IN STABLE CONDITON WITH HER .
== END 2022-10-09 13:36 | disposition home health service (06) | DRG 388 ==
LOC: COL.ER 02:44 → ICU 04:58 → MEDICAL 18:55
PROVIDERS: Emergency Medicine; Hospitalist; Internal Medicine; Physician Assistant; Student in an Organized Health Care Education/Training Program; Surgery; ADMIT Student in an Organized Health Care Education/Training Program
PROC: 02HV33Z Insertion of Infusion Device into Superior Vena Cava, Percutaneous Approach (ICD-10-PCS; principal; 2022-09-29)
DX: K56.609 Unspecified intestinal obstruction, unspecified as to partial versus complete obstruction (principal); J69.0 Pneumonitis due to inhalation of food and vomit; J96.01 Acute respiratory failure with hypoxia; R65.10 Systemic inflammatory response syndrome (SIRS) of non-infectious origin without acute organ dysfunction; E87.3 Alkalosis; E46 Unspecified protein-calorie malnutrition; K43.5 Parastomal hernia without obstruction or gangrene; E03.9 Hypothyroidism, unspecified; I10 Essential (primary) hypertension; J45.909 Unspecified asthma, uncomplicated; D72.829 Elevated white blood cell count, unspecified; F32.A Depression, unspecified; H91.90 Unspecified hearing loss, unspecified ear; R13.10 Dysphagia, unspecified; Z93.3 Colostomy status; Z68.34 Body mass index [BMI] 34.0-34.9, adult; Z95.0 Presence of cardiac pacemaker; Z96.652 Presence of left artificial knee joint; Z90.710 Acquired absence of both cervix and uterus; Z79.891 Long term (current) use of opiate analgesic; Z88.2 Allergy status to sulfonamides; Z88.8 Allergy status to other drugs, medicaments and biological substances
CPT/HCPCS: A9284; C1751; C1892; C9113; J0610; J0696; J1650; J1940; J2270; J2405; J2550; J3411; J3475; J3480; J7120; J7131; Q9967

== ENCOUNTER 2022-12-14 08:00 | Inpatient (IN) | payer MEDICARE ==
[~2022-12-14] VITALS: Ht 157.5 cm; Wt 75.5 kg
[~2022-12-14 08:00] MED LIST changes: +BENTYL 10MG10 MG/CAP PO; +FLEXERIL 1010 MG/TAB PO; +GENTLE LAXATIVE5 MG PO
[2022-12-14 09:56] LABS: COLLECTION METHOD CLEAN CATCH
[2022-12-14 10:09] LABS: BASO # 0.1 K/mm3 (0.0-0.2); BASO % 0.5 % (0.0-2.0); EOS # 0.1 K/mm3 (0.0-0.7); EOS % 0.4 % (0.0-4.0); GRAN # 14.8 K/mm3 (1.4-6.5); GRAN % 88.1 % (42.2-75.2); HEMATOCRIT 37.1 % (37.0-47.0); HEMOGLOBIN 12.5 g/dl (12.5-16.0); LYMPH # 0.8 K/mm3 (1.2-3.4); LYMPH % 4.9 % (20.0-51.0); MEAN CELL VOLUME 92 fl (80.0-100.0); MEAN CORPUSCULAR HEMOGLOBIN 31 pg (27-31); MEAN CORPUSCULAR HGB CONC 34 g/dl (33.0-37.0); MEAN PLATELET VOLUME 9.3 fl (7.4-10.4); MONO % 5.6 % (1.7-9.3); PLATELET COUNT 486 K/mm3 (130-400); RED BLOOD COUNT 4.03 M/mm3 (4.10-5.30); REDCELL DISTRIBUTION WIDTH-CV 12.9 % (11.5-14.5)
[2022-12-14 10:17] LABS: MUCOUS Present (NOT PRESENT); SQUAMOUS EPITHELIAL 0-2 /hpf (0-10); URINE BACTERIA None Seen /hpf (NONE SEEN); URINE RBC 0-2 /hpf (0-2)
[2022-12-14 10:23] LABS: ALBUMIN 3.1 gm/dL (3.4-4.8); BILIRUBIN,TOTAL 0.4 mg/dL (0.2-1.2); CALCIUM 9.6 mg/dL (8.4-10.2); CREATININE, serum 0.67 mg/dL (0.57-1.11); TOTAL PROTEIN 7.2 gm/dL (6.2-8.1)
[2022-12-14 10:26] LABS: URINE APPEARANCE Clear (CLEAR/HAZY); URINE BLOOD Negative (NEGATIVE); URINE COLOR Yellow (YELLOW); URINE GLUCOSE Negative (NEGATIVE); URINE KETONE 1+ (NEGATIVE); URINE NITRATE Negative (NEGATIVE); URINE PROTEIN(semi-quant) 2+ (NEGATIVE)
[2022-12-14 10:29] LABS: TROPONIN-I 0.014 ng/mL (0.00-0.033)
[2022-12-14 16:09] VITALS: BP 159/62; PULSE 82; TEMP 97.8
[2022-12-14 18:24] VITALS: BP 126/58; PULSE 75
--- NOTE | 2022-12-14 18:28 | NUR ---
PATIENT BROUGHT TO FLOOR, ORIENTED TO ROOM AND POLICIES. PATIENT ON 2L PER NC. PATIENT DENIES ANY PAIN AT THIS TIME. PATIENT APPEARS TO BE SOB, O2 SAT 95-97% PATIENT DENIES/REFUSES CPAP TO USE HS. RESPIRATORY NOTIFIED OF PATIENT NEEDS. NS RUNNING AT 75ML/HOUR IN LEFT AC. PATIENT REPORTS SCANT OUTPUT IN COLOSTOMY THIS AM. ASSESSMENT PERFORMED. MEDS ADMINISTERED.
[2022-12-14 19:00] VITALS: BP 141/77; PULSE 89; TEMP 97.9
--- NOTE | 2022-12-14 22:19 | NUR ---
Patient assessed around 1939. Alert and oriented, and able to make needs known. [place] having pain and discomfort. Remains on oxygen at 2 L/min via NC. Reports SOB with exertion. Uses bedside commode. Voices no questions, needs, or concerns at this time. In bed with call light within reach.
[2022-12-14 23:40] VITALS: BP 118/78; PULSE 84; TEMP 97.6
[2022-12-15 04:24] VITALS: BP 116/56; PULSE 83; TEMP 97.7
--- NOTE | 2022-12-15 05:08 | NUR ---
Patient complained of discomfort to left AC IV site. New one started to right forearm. Continues on IV fluids and ABX per orders. Wearing oxygen at 2 L/min via NC. Did wear CPAP for a few hours during the night. Voices no questions, needs, or concerns at this time. In bed with call light within reach.
[2022-12-15 07:09] LABS: BASO # 0.1 K/mm3 (0.0-0.2); BASO % 0.5 % (0.0-2.0); EOS # 0.1 K/mm3 (0.0-0.7); GRAN # 12.2 K/mm3 (1.4-6.5); GRAN % 84.4 % (42.2-75.2); HEMOGLOBIN 11.1 g/dl (12.5-16.0); LYMPH # 0.9 K/mm3 (1.2-3.4); LYMPH % 6.5 % (20.0-51.0); MEAN CELL VOLUME 95 fl (80.0-100.0); MEAN CORPUSCULAR HEMOGLOBIN 31 pg (27-31); MEAN CORPUSCULAR HGB CONC 32 g/dl (33.0-37.0); MEAN PLATELET VOLUME 9.5 fl (7.4-10.4); MONO % 6.8 % (1.7-9.3); PLATELET COUNT 474 K/mm3 (130-400); RED BLOOD COUNT 3.61 M/mm3 (4.10-5.30)
[2022-12-15 07:14] LABS: HEMATOCRIT 34.4 % (37.0-47.0)
[2022-12-15 07:26] VITALS: BP 114/32; BP 134/52; PULSE 81; TEMP 97.8
[2022-12-15 07:53] LABS: ALBUMIN 2.6 gm/dL (3.4-4.8); CALCIUM 8.5 mg/dL (8.4-10.2); CREATININE, serum 0.7 mg/dL (0.57-1.11); MAGNESIUM 1.8 mg/dL (1.6-2.6); PHOSPHOROUS 3.8 mg/dL (2.3-4.7); POTASSIUM 3.9 mmol/L (3.5-4.5)
--- NOTE | 2022-12-15 09:53 | NUR ---
Initial visit; Patient thanked Hotel Service Manager for offering empathy and prayer. Patient states she is in terrible pain and can barely breathe. Hotel Service Manager listened, offered prayer for discernment from the tests and Physician so she can be healed of her health issues. Hotel Service Manager wished her well and will follow up.
--- NOTE | 2022-12-15 11:08 | NUR ---
SHIFT ASSESSMENT COMPLETED AND MORNING MEDICATIONS ADMINISTERED PER ORDER. PATIENT IS ALERT AND ORIENTED X4. C/O PAIN WITH INSPIRATION, DENIES NEED FOR PAIN MEDICATION AT THIS TIME. SHORT OF BREATH WITH EXERTION. IV FLUIDS D/C PER ORDER. IV LASIX GIVEN PER ORDER. 94% ON 1LNC, O2 SAT DID DROP WITH ACTIVITY. RR 20. DENIES NEEDS AT THIS TIME. CALL LIGHT WITHIN REACH.
[2022-12-15 11:18] VITALS: BP 130/58; PULSE 90; TEMP 97.3
--- NOTE | 2022-12-15 12:44 | NUR ---
GONZALO met with the patient and her , Jomar (ph#[phone]), to discuss discharge plan. The patient lives in [place] with her . She reports independence with ADLs and has a walker and CPAP. She has a colostomy. She states that her helps her take care of it. The patient's PCP is Dr. Peyton Granda and she obtains her medications from [facility]. The patient's DPOA-HC is in EMR and it designates her newphew, Wilder Sarmiento (ph#[phone]). Wilder lives near [place], [place]. The patient plans to return home with her upon discharge. GONZALO discussed home health services. The patient states that she had them in the past from [facility], but they did not care for that agency. She would be interested in getting home health set up again, but from a different agency. GONZALO provided her with Medicare.gov's list of home health agencies that serve [place]. The patient chose [facility]. She chose [facility] as a second preference. The patient is currently on oxygen and she confirms that she does not have home oxygen. GONZALO contacted and faxed a referral to Gabi at [facility]. *Discharge plan: home with and home health*
--- NOTE | 2022-12-15 14:32 | NUR ---
Bayron, at [facility], reports that they are able to accept the patient.
[2022-12-15 16:41] VITALS: BP 132/66; PULSE 87; TEMP 98.2
--- NOTE | 2022-12-15 18:55 | NUR ---
PATIENT IN BED AT THIS TIME. DENIES NEEDS. NO OUTPUT FROM COLOSTOMY. NO N/V. CALL LIGHT WITHIN REACH.
[2022-12-15 19:56] VITALS: BP 111/93; PULSE 101; TEMP 97.9
--- NOTE | 2022-12-15 21:56 | NUR ---
Patient assessed around 1954. Alert and oriented. Denies having pain and discomfort. Was on oxygen at 1 L/min via NC. Requested to be put on CPAP, and this nurse assisted with it, with oxygen at 2 L/min bleed in. At this time, patient requested CPAP to be taken off, and put back on NC. Does report SOB and dyspnea, especially with exertion. Respirations even and unlabored at rest. Talking in full sentences. BSAx4. Colostomy to LLQ. Does have small amount of soft formed stool present. Denies having any nausea and has been tolerating food and fluid well. Interdry applied under breast and to groin/abdominal folds for excoriation. Patient had been given Lasix on previous shift, and has a purewick in place with clear yellow urine. This nurse encouraged patient to get out of the bed to go to the bathroom, but patient wanted to leave the purewick in place. Explained that getting up and moving around will help, and that staying in bed will put her at a higher risk of developing worsening pneumonia. Patient did state that she is breathing better after receiving the Lasix. Patient keeps stating that she is not ready to go home and that the doctor is making her go home tomorrow. Patient also states that she doesn't know how she will be able to care for herself at home without her . is still alive and they are living together. Encouraged patient to talk to psychologist social and the physician tomorrow about her concerns. In bed with call light within reach. Bed alarm on.
[2022-12-15 22:45] VITALS: BP 118/64; PULSE 87; TEMP 97.7
[2022-12-16 03:45] VITALS: BP 108/53; PULSE 86; TEMP 97.7
--- NOTE | 2022-12-16 06:23 | NUR ---
Patient did allow staff to take off purewick and used commode. Continues to report shortness of breath, but states that it is better than when she first came in. Continues on oxygen at 2 L/min via NC. Voices no questions, needs, or concenrs at this time. In bed with call light within reach. High fall risk precautions in place.
[2022-12-16 06:52] LABS: BASO # 0.1 K/mm3 (0.0-0.2); BASO % 0.5 % (0.0-2.0); EOS # 0.1 K/mm3 (0.0-0.7); EOS % 0.8 % (0.0-4.0); GRAN # 12.4 K/mm3 (1.4-6.5); GRAN % 83.1 % (42.2-75.2); HEMATOCRIT 37.2 % (37.0-47.0); HEMOGLOBIN 12.5 g/dl (12.5-16.0); LYMPH # 1.2 K/mm3 (1.2-3.4); LYMPH % 8.1 % (20.0-51.0); MEAN CELL VOLUME 93 fl (80.0-100.0); MEAN CORPUSCULAR HEMOGLOBIN 31 pg (27-31); MEAN CORPUSCULAR HGB CONC 34 g/dl (33.0-37.0); MEAN PLATELET VOLUME 9.3 fl (7.4-10.4); PLATELET COUNT 491 K/mm3 (130-400); RED BLOOD COUNT 3.99 M/mm3 (4.10-5.30)
[2022-12-16 07:14] LABS: ALBUMIN 2.8 gm/dL (3.4-4.8); CALCIUM 9.2 mg/dL (8.4-10.2); CREATININE, serum 0.71 mg/dL (0.57-1.11); MAGNESIUM 1.8 mg/dL (1.6-2.6); PHOSPHOROUS 3.8 mg/dL (2.3-4.7); POTASSIUM 4.3 mmol/L (3.5-4.5)
[2022-12-16] MEDS ORDERED: ZESTRIL 5MG5 MG PO (07:20)
[2022-12-16 07:51] VITALS: BP 138/32; PULSE 80; TEMP 97.6
[2022-12-16] MEDS ORDERED: LASIX 40MG TABL40 MG PO (08:41)
[2022-12-16] MEDS ORDERED: OXYGEN NS (08:45)
--- NOTE | 2022-12-16 09:42 | NUR ---
SHIFT ASSESSMENT COMPLETED AND MORNING MEDICATIONS ADMINISTERED PER ORDER. PATIENT IS ALERT AND ORIENTED X4. DENIES PAIN. LUNGS DIMINISHED IN THE BASES. PATIENT ON 2L O2 VIA NC. SOME SHORTNESS OF BREATH WITH EXERTION, DENIES SHORTNESS OF BREATH AT REST. PLAN IS TO DISCHARGE TODAY PENDING HOME O2. DENIES NEEDS. CALL LIGHT WITHIN REACH AND FALL PRECAUTIONS IN PLACE.
--- NOTE | 2022-12-16 09:43 | NUR ---
The clinical team is ready to discharge the patient today. An exercise oximetry was ordered. RT notified SW that the patient qualified for 2 liters continuously. SW met with the patient to update and informed her of the local DME companies. The patient is agreeable to getting her oxygen from [facility]. She states she received her CPAP from [facility]. [facility] no longer fills oxygen orders. GONZALO contacted and faxed the oxygen order to Ken at [facility]. Awaiting delivery of oxygen. GONZALO notified the patient's RN of this. The patient is to discharge back home with her today, 12/16, with home health services for halfway/PT/OT from [facility]. GONZALO notified and faxed orders to Betty at [facility]. No additional needs at this time.
--- NOTE | 2022-12-16 09:51 | NUR ---
Follow-up visit; Patient showing signs of anxiety stating she is not ready to go home, Showroom Sales Assistant assured Dea that the fact that she has kenn in her Clinic Nurse and knows she is God's Child and will stop and pray anytime she feels anxious, she will do well. Patient thanked Showroom Sales Assistant.
[2022-12-16 11:18] VITALS: BP 121/57; PULSE 93; TEMP 97.4
--- NOTE | 2022-12-16 15:50 | NUR ---
PATIENT DISCHARGED PER ORDER. IVS REMOVED WITH CATHETER INTACT, MINIMAL BLEEDING NOTED, GAUZE DRESSING APPLIED. DISCHARGE EDUCATION PROVIDED ON MEDICATIONS, DX, AND FOLLOW UPS. DENIES FURTHER QUESTIONS. ESCORTED OUT BY STAFF.
== END 2022-12-16 15:50 | disposition home health service (06) | DRG 393 ==
LOC: COL.ER 08:00 → MEDICAL 12:08
PROVIDERS: Emergency Medicine; ADMIT Internal Medicine
DX: K43.3 Parastomal hernia with obstruction, without gangrene (principal); J96.01 Acute respiratory failure with hypoxia; J90 Pleural effusion, not elsewhere classified; N39.0 Urinary tract infection, site not specified; K43.5 Parastomal hernia without obstruction or gangrene; K59.00 Constipation, unspecified; K76.0 Fatty (change of) liver, not elsewhere classified; Z96.652 Presence of left artificial knee joint; E83.52 Hypercalcemia; D72.829 Elevated white blood cell count, unspecified; I44.1 Atrioventricular block, second degree; F32.A Depression, unspecified; E03.9 Hypothyroidism, unspecified; I11.0 Hypertensive heart disease with heart failure; I35.1 Nonrheumatic aortic (valve) insufficiency; J44.9 Chronic obstructive pulmonary disease, unspecified; G47.33 Obstructive sleep apnea (adult) (pediatric); G43.909 Migraine, unspecified, not intractable, without status migrainosus; H26.9 Unspecified cataract; M19.90 Unspecified osteoarthritis, unspecified site; I50.9 Heart failure, unspecified; Z79.890 Hormone replacement therapy; Z90.710 Acquired absence of both cervix and uterus; Z88.1 Allergy status to other antibiotic agents; Z88.2 Allergy status to sulfonamides; Z88.8 Allergy status to other drugs, medicaments and biological substances; Z95.0 Presence of cardiac pacemaker; Z23 Encounter for immunization
CPT/HCPCS: J0696; J1940; J2543; J7030; Q9967

== ENCOUNTER 2023-09-24 12:00 | Emergency (ER) | payer MEDICARE ==
[~2023-09-24] VITALS: Ht 157.5 cm; Wt 74.9 kg
[~2023-09-24 12:00] MED LIST changes: +LASIX 40MG TABL40 MG PO; +OXYGEN NS; +ZESTRIL 5MG5 MG PO
[2023-09-24 12:08] VITALS: TEMP 98.1
[2023-09-24 13:45] VITALS: BP 128/46; PULSE 68
[2023-09-24] MEDS ORDERED: Nystatin Powder **** subs to Miconazole Powder TOP SCH (21:00)
[2023-09-24] MEDS ORDERED: Miconazole 2% Topical Powder BOTTLE TP SCH (21:00)
== END 2023-09-24 13:45 | disposition home or self-care (01) ==
LOC: COL.ER 12:00
DX: L30.4 Erythema intertrigo (principal); Z93.3 Colostomy status

== ENCOUNTER 2024-07-22 02:25 | Inpatient (IN) | payer MEDICARE ==
[2005-03-03 11:22] VITALS: BP 159/86
[~2024-07-22] VITALS: Ht 154.9 cm; Wt 79.0 kg
[2024-07-22] VITALS (883 sets, daily range): BP systolic 59–124; BP diastolic 35–87; PULSE 65–137; TEMP 97.1–99.1; O2SAT 94–100
[2024-07-22] MEDS ORDERED: Morphine 4 MG/ML VIAL IV ONE (02:45)
[2024-07-22 02:51] LABS: BASO # 0.1 K/mm3 (0.0-0.2); BASO % 0.5 % (0.0-2.0); EOS # 0.1 K/mm3 (0.0-0.7); EOS % 0.5 % (0.0-4.0); GRAN % 84.3 % (42.2-75.2); HEMATOCRIT 46.4 % (37.0-47.0); LYMPH # 2.2 K/mm3 (1.2-3.4); LYMPH % 9.8 % (20.0-51.0); MEAN CELL VOLUME 100 fl (80.0-100.0); MEAN CORPUSCULAR HEMOGLOBIN 32 pg (27-31); MEAN CORPUSCULAR HGB CONC 32 g/dl (33.0-37.0); MEAN PLATELET VOLUME 9.4 fl (7.4-10.4); MONO % 4.5 % (1.7-9.3); PLATELET COUNT 331 K/mm3 (130-400); RED BLOOD COUNT 4.65 M/mm3 (4.10-5.30); REDCELL DISTRIBUTION WIDTH-CV 12.8 % (11.5-14.5)
[2024-07-22 03:08] LABS: ALBUMIN 4.5 g/dL (3.4-4.8); BILIRUBIN,TOTAL 0.4 mg/dL (0.2-1.2); CALCIUM 9.4 mg/dL (8.4-10.2); CREATININE, serum 0.98 mg/dL (0.57-1.11); MAGNESIUM 1.9 mg/dL (1.6-2.6); POTASSIUM 3.5 mEq/L (3.5-4.5); TOTAL PROTEIN 8.1 g/dl (6.2-8.1)
[2024-07-22] MEDS ORDERED: Iohexol 300 - 100 ML VIAL IV ONE (03:13)
[2024-07-22 03:14] LABS: TROPONIN-I 0.026 ng/mL (0.00-0.033)
[2024-07-22] MEDS ORDERED: NS 50 ML IV ONE (03:14)
[2024-07-22] MEDS ORDERED: HYDROmorphone 0.5 MG/0.5 ML SYRINGE IV ONE (03:30)
[2024-07-22] MEDS ORDERED: LR 1,000 ML IV ONE (03:45)
[2024-07-22] MEDS ORDERED: Ondansetron 4 MG/2 ML VIAL IV PRN ×2 (03:45→09:00)
[2024-07-22] MEDS ORDERED: 1: LR 1,000 ML 2: NS 1,000 ML IV SCH ×2 (03:45→09:00)
[2024-07-22] MEDS ORDERED: MELATONIN5 M1 SL (03:55)
[2024-07-22] MEDS ORDERED: VITAMIN D31000 I1 PO (03:57)
[2024-07-22] MEDS ORDERED: Lidocaine PF 2% (20 MG/ML) 5 ML VIAL ONE (05:08)
[2024-07-22] MEDS ORDERED: Rocuronium 50 MG/5 ML Multi-Dose VIAL ONE ×2 (05:08→07:20)
[2024-07-22] MEDS ORDERED: Succinylcholine PF 200 MG/10 ML SYRINGE IV ONE (05:10)
[2024-07-22] MEDS ORDERED: fentaNYL 50 MCG/ML 2 ML VIAL ONE (05:13)
[2024-07-22] MEDS ORDERED: ePHEDrine 50 MG/ML VIAL ONE (05:38)
[2024-07-22] MEDS ORDERED: Phenylephrine 10 MG/ML VIAL ONE ×2 (05:42→07:11)
[2024-07-22] MEDS ORDERED: Glycopyrrolate 0.2 MG/ML 1 ML VIAL ONE (05:59)
[2024-07-22] MEDS ORDERED: fentaNYL 50 MCG/ML 5 ML VIAL ONE (05:59)
[2024-07-22] MEDS ORDERED: Albumin (Human) 100 ML IV ONE (06:13)
[2024-07-22] MEDS ORDERED: Esmolol 10 MG/ML 10 ML VIAL IV ONE (06:15)
[2024-07-22] MEDS ORDERED: Midazolam 2 MG/2 ML VIAL ONE (08:15)
[2024-07-22] MEDS ORDERED: Heparin 5,000 UNITS/ML 1 ML VIAL SQ SCH ×2 (09:00→14:00)
--- NOTE | 2024-07-22 09:00 | NUR ---
Patient arrived to ICU at approx 0840 after surgery; patient had ET tube and NG tube in place upon arrival; RT hooked patient up to vent in room. Patient arrived with surgical nurse, PACU nurse, and anesthesia; patient hooked up to ICU monitors and fentanyl and propofol were started in the ICU for sedation. Patient tachycardic and blood pressures soft; levophed ordered if fluid bolus is not successful at raising her blood pressure. Patient has midline incision that is covered; dressing in CDI.
[2024-07-22 09:48] LABS: BILIRUBIN,TOTAL 0.7 mg/dL (0.2-1.2); CALCIUM 7.2 mg/dL (8.4-10.2); CREATININE, serum 1.09 mg/dL (0.57-1.11); MAGNESIUM 1.3 mg/dL (1.6-2.6); PHOSPHOROUS 1.1 mg/dL (2.3-4.7); POTASSIUM 3.2 mEq/L (3.5-4.5); TOTAL PROTEIN 4.7 g/dl (6.2-8.1)
[2024-07-22 10:05] LABS: HEMATOCRIT 37.8 % (37.0-47.0); MEAN CELL VOLUME 100 fl (80.0-100.0); MEAN CORPUSCULAR HGB CONC 32 g/dl (33.0-37.0); MEAN PLATELET VOLUME 9.5 fl (7.4-10.4); RED BLOOD COUNT 3.77 M/mm3 (4.10-5.30)
[2024-07-22 10:09] LABS: HEMOGLOBIN 12.1 g/dl (12.5-16.0); MEAN CORPUSCULAR HEMOGLOBIN 32 pg (27-31); PLATELET COUNT 227 K/mm3 (130-400)
[2024-07-22 10:44] LABS: ARTERIAL BLOOD GAS pH 7.34 (7.35-7.45)
[2024-07-22 10:45] LABS: ARTERIAL BLD GAS O2 SATURATION 98.2 % (92-100); ARTERIAL BLD GAS TCO2 CT 22.6; ARTERIAL BLOOD GAS BASE EXCESS -4.2 (-2-2); ARTERIAL BLOOD GAS HCO3 21.4 meq/L (22-26); ARTERIAL BLOOD GAS PCO2 40.9 mmHg (35-45); ARTERIAL BLOOD GAS PO2 121.4 mmHg (80-100)
[2024-07-22] MEDS ORDERED: fentaNYL 100 ML IV SCH (10:45)
[2024-07-22 11:18] LABS: BAND 13 % (0-10); EOSINOPHIL 2 % (0-4); LYMPHOCYTE 14 % (20.0-51.0); METAMYELOCYTE 2 % (0-0); MYELOCYTE 3 % (0-0); NEUTROPHILS 59 % (42.0-75.2)
[2024-07-22 11:23] LABS: PLATELET ESTIMATE NORMAL (NORMAL)
--- NOTE | 2024-07-22 11:41 | NUR ---
SW met with patient to complete intake. Patient is currently intabated and spouse Jomar Christensen [phone] present to assist with intake. Spouse provides he and spouse life in [facility], patient does utilize a walker, no home health services at this time, but states she did previously utilize [facility]. PCP is Dr. Turner, and pharmcy is [facility]. DPOA of health care appointed is rupesh Sarmiento [phone]. Discharge plan as of now TBD, but plan would be to return home if able to. SW will continue to follow. Discharge plan: TBD
--- NOTE | 2024-07-22 12:30 | NUR ---
After obtaining consent from patient's , a time-out was done and Dr. Kwon attempted to place an ART line. Patient is levophed and intubated and is going to need frequent ABGs and they were not able to place one during surgery. ART line was in place and worked momentarily; after several attempts at repositioning ART line was ultimately removed. Dr. Kwon, this nurse, and YESICA Esquivel were bedside during the procedure.
--- NOTE | 2024-07-22 12:47 | NUR ---
Data: Front Line Supervisor met with Patient's in the surgical waiting area. Assessment: was appropriately concerned for his . Plan of Care: Front Line Supervisor provided supportive listening and prayer. Chaplains will remain available as needed/requested while Patient is admitted to this hospital.
[2024-07-22] MEDS ORDERED: Magnesium Sulfate 4% 50 ML IV ONE (13:00)
[2024-07-22] MEDS ORDERED: *Potassium Replacement Protocol MC SCH (13:00)
[2024-07-22] MEDS ORDERED: Potassium Phoshate 20 MM in NS 250 ML IV ONE (13:30)
[2024-07-22] MEDS ORDERED: Naloxone 0.4 MG/ML VIAL IV PRN (19:00)
--- NOTE | 2024-07-22 19:30 | NUR ---
Received report from YESICA Alfonso. Patient resting quietly in bed. Remains on ventilator, tolerating well. Vitals within normal limits. Continues to receive fentanyl, propofol, and levophed drips, see IV drip titrations. Patient does not appear in evident discomfort or distress.
--- NOTE | 2024-07-22 20:17 | NUR ---
Patient has had roughly 100mL total urine output since returning from surgery this AM. Patient has had an approximate 4L fluid boluses with an additional 500-800mL of IVF and potassium/magnesium replacement. This RN attempted to bladder scan patient, but it was difficult to get an accurate reading due to patient's midline incision. Approximately 400mL output from NG. Dr. Small notified. No new orders received. To obtain next lactic with AM lab draws.
[2024-07-23] VITALS (1019 sets, daily range): BP systolic 59–133; BP diastolic 34–85; PULSE 60–67; TEMP 98.5–99.9; O2SAT 70–100
[2024-07-23] MEDS ORDERED: Vasopressin 20 UNITS in NS 100 ML IV SCH (00:45)
[2024-07-23] MEDS ORDERED: NS 1,000 ML IV ONE (00:45)
--- NOTE | 2024-07-23 05:00 | NUR ---
PT ON MINIMAL SEDATION. NO SEDATION VACATION PERFORMED.
--- NOTE | 2024-07-23 07:00 | NUR ---
Report received from YESICA Tong; patient currently sedated on ventilator with propofol and fentanyl running through her right IJ central line; patient also has fluids and levophed running through her central line. Patient has an ET tube, an NG tube, a Nieves catheter, and a peripheral INT in place. Patient has a colostomy that was in place upon admission; no other lines or tubes are in place at this time.
[2024-07-23 08:15] LABS: CALCIUM 6.6 mg/dL (8.4-10.2); CREATININE, serum 2.24 mg/dL (0.57-1.11); HEMATOCRIT 41.2 % (37.0-47.0); HEMOGLOBIN 13.6 g/dl (12.5-16.0); MAGNESIUM 1.7 mg/dL (1.6-2.6); MEAN CELL VOLUME 98 fl (80.0-100.0); MEAN CORPUSCULAR HEMOGLOBIN 32 pg (27-31); MEAN CORPUSCULAR HGB CONC 33 g/dl (33.0-37.0); MEAN PLATELET VOLUME 10.5 fl (7.4-10.4); PHOSPHOROUS 2.9 mg/dL (2.3-4.7); PLATELET COUNT 256 K/mm3 (130-400); POTASSIUM 5.6 mEq/L (3.5-4.5); RED BLOOD COUNT 4.21 M/mm3 (4.10-5.30); REDCELL DISTRIBUTION WIDTH-CV 13.2 % (11.5-14.5)
[2024-07-23 08:16] LABS: BAND 39 % (0-10); LYMPHOCYTE 24 % (20.0-51.0); METAMYELOCYTE 8 % (0-0); MYELOCYTE 5 % (0-0); NEUTROPHILS 23 % (42.0-75.2); PLATELET ESTIMATE NORMAL (NORMAL)
[2024-07-23] MEDS ORDERED: LR 1,000 ML IV ONE (08:45)
[2024-07-23] MEDS ORDERED: LR 1,000 ML IV SCH (08:45)
[2024-07-23] MEDS ORDERED: Insulin Regular Human (NovoLIN R/HumuLIN R) IV ONE (09:00)
[2024-07-23] MEDS ORDERED: Dextrose 50% Water 25 GM/50 ML SYRINGE IV ONE (09:00)
[2024-07-23] MEDS ORDERED: Sodium Polystyrene Sulf Susp 15 GM/60 ML BOTTLE PO ONE (09:00)
[2024-07-23 09:55] LABS: ARTERIAL BLD GAS O2 SATURATION 96.2 % (92-100); ARTERIAL BLD GAS TCO2 CT 14.1; ARTERIAL BLOOD GAS BASE EXCESS -10.6 (-2-2); ARTERIAL BLOOD GAS HCO3 13.3 meq/L (22-26); ARTERIAL BLOOD GAS PCO2 24.5 mmHg (35-45); ARTERIAL BLOOD GAS PO2 83.9 mmHg (80-100); ARTERIAL BLOOD GAS pH 7.35 (7.35-7.45)
[2024-07-23 11:04] LABS: POTASSIUM 5.1 mEq/L (3.5-4.5)
[2024-07-23 14:29] LABS: CALCIUM 6.3 mg/dL (8.4-10.2); CREATININE, serum 2.51 mg/dL (0.57-1.11); POTASSIUM 5.6 mEq/L (3.5-4.5)
[2024-07-23] MEDS ORDERED: SANCTURA20 MG PO (15:03)
[2024-07-23] MEDS ORDERED: ASPIRIN 81M81 MG/TA2 PO (15:04)
[2024-07-23] MEDS ORDERED: Sodium Bicarbonate/Water,Steri 1,150 ML IV SCH (16:00)
[2024-07-23] MEDS ORDERED: Albumin (Human) 100 ML IV SCH (16:00)
--- NOTE | 2024-07-23 16:08 | NUR ---
Spoke with Rn Documentation Specialist about new lab results. Will be switching fluids to sodium bicarb in sterile water and adding Albumin per consult with Clinical Informatics Strategist. At time patient is not alert, not able to follow commands, does withdrawl from pain, pupils are slightly reactive, slow. Pulses are dopplered and difficult to find. Levophed, Propofol, Fentanyl, Sodium Bicarb, and albumin are infusing without complications. Nieves draining dark tea colored urine, low output reported. Continue plan of care.
--- NOTE | 2024-07-23 18:54 | NUR ---
Patient oral care is done, canister/tubing for suctioning has been changed out. Output is green mossy in color. Titrating Levophed down. Will continue to trend.
--- NOTE | 2024-07-23 19:29 | NUR ---
REPORT RECEIVED FROM YESICA ALVAREZ. PATIENT CURRENTLY SEDATED AND TOLERATING VENT. HAS LEVOPHED, PROPOFOL, FENTANYL, AND SODIUM BICARB RUNNING. [address]RAINTS IN PLACE. BRYAN AND COLOSTOMY. MIDLINE DRESSING DRY AND INTACT. WILL CONTINUE PLAN OF CARE.
[2024-07-23 20:13] LABS: CALCIUM 6.3 mg/dL (8.4-10.2); CREATININE, serum 2.66 mg/dL (0.57-1.11); POTASSIUM 5.4 mEq/L (3.5-4.5)
[2024-07-24] VITALS (1089 sets, daily range): BP systolic 111–150; BP diastolic 47–57; PULSE 60–120; TEMP 98.1–99.9; O2SAT 75–100
--- NOTE | 2024-07-24 03:15 | NUR ---
ABDOMINAL DRESSING CHANGED DURING BATH. SMALL AMOUTS OF SEROSANGUINEOUS DRAINAGE NOTED ON OLD DRESSING. INCISION/SANDRA INTACT AND DRY. NEW 4X4s PLACED ALONG INCISION TOPPED WITH ABD PADS AND TAPE ALONG THE EDGES.
[2024-07-24 05:35] LABS: MEAN CORPUSCULAR HGB CONC 35 g/dl (33.0-37.0); MEAN PLATELET VOLUME 10.4 fl (7.4-10.4); RED BLOOD COUNT 2.81 M/mm3 (4.10-5.30); REDCELL DISTRIBUTION WIDTH-CV 13.1 % (11.5-14.5)
[2024-07-24 05:38] LABS: HEMATOCRIT 26.1 % (37.0-47.0); MEAN CELL VOLUME 93 fl (80.0-100.0); MEAN CORPUSCULAR HEMOGLOBIN 32 pg (27-31)
[2024-07-24 05:41] LABS: PLATELET COUNT 115 K/mm3 (130-400)
[2024-07-24 05:50] LABS: BAND 13 % (0-10); LYMPHOCYTE 10 % (20.0-51.0); MYELOCYTE 1 % (0-0); NEUTROPHILS 75 % (42.0-75.2); NUCLEATED RED BLOOD CELL 1 (0-6)
[2024-07-24 05:51] LABS: ANISOCYTOSIS 1+; PLATELET ESTIMATE DECREASED (NORMAL)
[2024-07-24 05:52] LABS: CALCIUM 6.1 mg/dL (8.4-10.2); CREATININE, serum 2.76 mg/dL (0.57-1.11); POTASSIUM 4.6 mEq/L (3.5-4.5)
--- NOTE | 2024-07-24 07:45 | NUR ---
Dr. Small at bedside to see patient. Slight Duskiness noted to part of her colostomy stoma. Dr. Small aware and no new orders received at this time.
[2024-07-24 08:51] LABS: INR 1.5 (0.8-3.0); PROTHROMBIN TIME 16.3 SECONDS (9.7-12.8)
[2024-07-24 09:18] LABS: PARTIAL THROMBOPLASTIN TIME 47.8 SECONDS (26.0-37.0)
--- NOTE | 2024-07-24 10:36 | NUR ---
Propofol stopped at this time in preparation for a CPAP trial. Trial lasted approximately 5 min as TV was decreased and respirations were in the mid 30's. Dr. Kwon notified and will re-try tomorrow am.
--- NOTE | 2024-07-24 10:53 | NUR ---
Initial attempted visit: Patient vented so Soc Analyst spoke with nurse who explained that patient, though unable to speak, was receptive to her Finish Repairer who had just spent some time talking and praying for his patient.
[2024-07-24 12:45] LABS: MEAN CELL VOLUME 92 fl (80.0-100.0); MEAN CORPUSCULAR HGB CONC 36 g/dl (33.0-37.0); MEAN PLATELET VOLUME 10.8 fl (7.4-10.4); PLATELET COUNT 100 K/mm3 (130-400); RED BLOOD COUNT 2.49 M/mm3 (4.10-5.30)
[2024-07-24 12:48] LABS: HEMATOCRIT 22.8 % (37.0-47.0); HEMOGLOBIN 8.2 g/dl (12.5-16.0); MEAN CORPUSCULAR HEMOGLOBIN 33 pg (27-31)
--- NOTE | 2024-07-24 16:15 | NUR ---
Dr. Small updated on patient condition. Has had approximately 550 ml of dark green output with sediment from NG. No new orders at this time.
--- NOTE | 2024-07-24 16:24 | NUR ---
photofinishing laboratory worker attended multidisciplinary team meeting to discuss patient's progress and discharge plan. Patient is currently intubated, patient's discharge plan is pending medical status.
--- NOTE | 2024-07-24 18:45 | NUR ---
Patient gastric residuals have been a dark green all shift. At this time drainage was now noted to be a kriss brown color with some blood clots noted. Dr. Small notified and received new orders to hold SQ heparin and start protonix BID. Within a few minutes drainage was observed changing from a kriss brown color to swapna red blood. Patient's colostomy stoma also appeared more swollen than at the beginning of the shift. Dr. Small was called back and updated asked if obtaining a CT abdomen was appropriate and Dr. Small did not feel it was necessary at this time. Can continue to keep NG to LIS. Will continue to monitor.
--- NOTE | 2024-07-24 19:30 | NUR ---
REPORT RECIEVED FROM CHETAN. PATIANT INTUBATED. LEVO WEANED OFF. PROPOFOL AND FENT INFUSING ALONG WITH SODIUM BICARB. BLEEDING NOTED IN NG TUBE WHILE ON SUCTION. SURGERY, HOSPITALIST AND ANTHONY NOTIFED OF CHANGE. TOLERATING VENT WELL. SUB Q HEPARIN PLACED ON HOLD FOR THE TIME BEING. BRYAN AND COLOSTOMY. PLANS TO TITRATE PROPOFOL OFF AND START PRECEDEX IN THE MORING FOR EXTUBATION. WILL CONTINUE PLAN OF CARE.
[2024-07-24] MEDS ORDERED: Pantoprazole 40 MG in NS 10 ML IV SCH (21:00)
[2024-07-24 21:44] LABS: MEAN CELL VOLUME 92 fl (80.0-100.0); MEAN CORPUSCULAR HGB CONC 36 g/dl (33.0-37.0); MEAN PLATELET VOLUME 10.7 fl (7.4-10.4); PLATELET COUNT 86 K/mm3 (130-400); RED BLOOD COUNT 2.25 M/mm3 (4.10-5.30)
[2024-07-24 21:46] LABS: HEMATOCRIT 20.7 % (37.0-47.0); HEMOGLOBIN 7.4 g/dl (12.5-16.0); MEAN CORPUSCULAR HEMOGLOBIN 33 pg (27-31)
[2024-07-24 22:29] LABS: INR 1.4 (0.8-3.0); PROTHROMBIN TIME 14.9 SECONDS (9.7-12.8)
--- NOTE | 2024-07-24 22:52 | NUR ---
NOTIFIED DR. MICHAEL OF LAB RESULTS. ORDERS TO WAIT ON CTA UNTIL TOMORROW AND ADMINISTER ONE UNIT OF BLOOD NOW.
[2024-07-25] VITALS (935 sets, daily range): BP systolic 102–126; BP diastolic 44–65; PULSE 80–109; TEMP 98.8–100.4; O2SAT 90–100
--- NOTE | 2024-07-25 03:32 | NUR ---
MISSED 0100 VENTILATOR CHECK DUE TO PATIENT INTUBATION IN ANOTHER ROOM.
--- NOTE | 2024-07-25 05:00 | NUR ---
PRECEDEX INITIATED AT [address] MCCAIN. PROPOFOL PUT TO STANDBY AT THIS TIME. NO FURTHER SEDATION VACATION PREFORMED.
[2024-07-25 06:55] LABS: MEAN CELL VOLUME 90 fl (80.0-100.0); MEAN CORPUSCULAR HGB CONC 36 g/dl (33.0-37.0); MEAN PLATELET VOLUME 10.9 fl (7.4-10.4); PLATELET COUNT 79 K/mm3 (130-400); RED BLOOD COUNT 2.48 M/mm3 (4.10-5.30); REDCELL DISTRIBUTION WIDTH-CV 13.2 % (11.5-14.5)
[2024-07-25 07:00] LABS: CALCIUM 6.1 mg/dL (8.4-10.2); CREATININE, serum 2.13 mg/dL (0.57-1.11); POTASSIUM 3.1 mEq/L (3.5-4.5)
[2024-07-25 07:07] LABS: HEMATOCRIT 22.2 % (37.0-47.0); MEAN CORPUSCULAR HEMOGLOBIN 32 pg (27-31)
[2024-07-25 07:40] LABS: NEUTROPHILS 59 % (42.0-75.2)
[2024-07-25 07:41] LABS: PLATELET ESTIMATE DECREASED (NORMAL)
[2024-07-25 07:42] LABS: HYPOCHROMIA 1+
[2024-07-25 07:43] LABS: BAND 28 % (0-10); LYMPHOCYTE 8 % (20.0-51.0)
[2024-07-25 07:50] LABS: ARTERIAL BLD GAS O2 SATURATION 92.2 % (92-100); ARTERIAL BLOOD GAS BASE EXCESS 7.8 (-2-2); ARTERIAL BLOOD GAS HCO3 31.7 meq/L (22-26); ARTERIAL BLOOD GAS PCO2 41.7 mmHg (35-45); ARTERIAL BLOOD GAS PO2 61.6 mmHg (80-100)
[2024-07-25 07:51] LABS: ARTERIAL BLD GAS TCO2 CT 33
[2024-07-25] MEDS ORDERED: LR 1,000 ML IV SCH (08:30)
[2024-07-25] MEDS ORDERED: Potassium Chloride 20 mEq/100 mL IV Soln IV SCH (09:00)
[2024-07-25] MEDS ORDERED: Albuterol 0.083% Neb Soln 2.5 MG/3 ML UD IH PRN (09:00)
--- NOTE | 2024-07-25 09:15 | NUR ---
Patient is vented, laying in bed, tolerating CPAP trial. Sedation and fentanyl on standby, precedex small dose in use. She does not follow more than two commands, will no squeeze hands, but does wiggle toes and raise eyebrows. She cannot lift head off of the bed or nod yes or no. At this time, Sodium bicarb was infusing, into central line RIJ without complications. Nieves is drianing yellow boyce urine with 900 ml report out overnight. Blood pressure and vitals have been stable. NG tube has had swapna red blood draining on LIS, approximately 400 ml overnight. One unit of PRBC was given. Night nurse notified of changes in output. Stoma is dusky and becoming rutledge in areas with significant swelling, midline is oozing purluent fluids although ralph are intact. There is a hard spot that is LLQ around and near stoma that causes patient to wince when palpated. Concerns have been report this morning to Hospitalist and Salesperson Handbags. Will be reaching out to Surgery per Salesperson Handbags.
[2024-07-25] MEDS ORDERED: Sodium Chloride 3% For Neb Soln 4 ML AMP IH SCH (09:30)
[2024-07-25] MEDS ORDERED: Furosemide 40 MG/4 ML VIAL IV SCH (09:37)
--- NOTE | 2024-07-25 11:20 | NUR ---
Exam on hold per RN until hemodynamically stable.
[2024-07-25] MEDS ORDERED: Dextrose (Glucose) 15 GM (4 x 3.75 GM) Chewable TABLET PACK PO PRN (12:15)
[2024-07-25] MEDS ORDERED: Dextrose 50% Water 25 GM/50 ML SYRINGE IV PRN (12:15)
[2024-07-25] MEDS ORDERED: Glucagon 1 MG VIAL IM PRN (12:15)
[2024-07-25 14:11] LABS: CALCIUM 6.1 mg/dL (8.4-10.2); CREATININE, serum 2.18 mg/dL (0.57-1.11); MAGNESIUM 1.6 mg/dL (1.6-2.6); PHOSPHOROUS 4.5 mg/dL (2.3-4.7); POTASSIUM 3.3 mEq/L (3.5-4.5)
[2024-07-25] MEDS ORDERED: Ondansetron 4 MG/2 ML VIAL IV PRN (14:30)
[2024-07-25] MEDS ORDERED: Acetaminophen 325 MG TAB PO PRN (14:30)
--- NOTE | 2024-07-25 14:30 | NUR ---
Wound culture was taken via Dr. Small while doing an exam her abdomen. Purulent drainage was oozing from the site, wound culture collected and taken to lab. Otherwise, bloody drainage from NG tube has slowed, overnight was reported 400 ml swapna red, this am it has been 200 ml, with 210 ml flush, and was dark red, like dried blood with clots. At this time, NG is flushing, and not draining dark red swapna blood. Will continue to document changes in labs and drainage.
[2024-07-25] MEDS ORDERED: Potassium Chloride 100 ML IV SCH (15:30)
[2024-07-25] MEDS ORDERED: Multivitamins 1 VIAL,Folic Acid 1 MG,Thiamine 200 MG in TPN (Clinimix-E 8%/14%) 1,000 ML IV SCH (16:00)
[2024-07-25] MEDS ORDERED: Insulin Lispro (HumaLOG) SQ SCH (18:00)
--- NOTE | 2024-07-25 19:15 | NUR ---
Received report from YESICA Cagle. Patient remains on ventilator, tolerating well. Opens eyes to speech and follows verbal commands. All vitals within normal limits. Continues to receive fentanyl and propofol drips, see IV drip titrations. TPN infusing according to orders in EMAR. Nieves catheter to dependent drainage.
--- NOTE | 2024-07-25 20:00 | NUR ---
Patient's midline incision dressing is changed during total bath. [place] are intact, edges of incision are well approximated. Some brownish purulent fluid noted to seep from distal end of incision. New dressing of gauze, ABD pads, and medipore tape applied. Patient tolerated dressing change well.
[2024-07-26] VITALS (1276 sets, daily range): BP systolic 89–138; BP diastolic 48–117; PULSE 68–129; TEMP 97.9–99.9; O2SAT 86–100
[2024-07-26 04:38] LABS: MEAN CELL VOLUME 91 fl (80.0-100.0); MEAN CORPUSCULAR HGB CONC 35 g/dl (33.0-37.0); MEAN PLATELET VOLUME 11.1 fl (7.4-10.4); PLATELET COUNT 94 K/mm3 (130-400); RED BLOOD COUNT 2.56 M/mm3 (4.10-5.30); REDCELL DISTRIBUTION WIDTH-CV 13.6 % (11.5-14.5)
[2024-07-26 04:39] LABS: HEMATOCRIT 23.4 % (37.0-47.0); HEMOGLOBIN 8.2 g/dl (12.5-16.0); MEAN CORPUSCULAR HEMOGLOBIN 32 pg (27-31)
[2024-07-26 04:46] LABS: CALCIUM 6.3 mg/dL (8.4-10.2); CREATININE, serum 2.33 mg/dL (0.57-1.11); PHOSPHOROUS 3.8 mg/dL (2.3-4.7); POTASSIUM 3.6 mEq/L (3.5-4.5)
[2024-07-26] MEDS ORDERED: *Potassium Replacement Protocol MC SCH (05:15)
[2024-07-26] MEDS ORDERED: Potassium Chloride 100 ML IV SCH (05:15)
--- NOTE | 2024-07-26 05:19 | NUR ---
Patient alert and following verbal commands at current sedation levels. Patient able to answer yes/no questions by nodding/shaking head. Nods head when asked in pain at this time. No sedation vacation performed.
[2024-07-26 05:45] LABS: BAND 13 % (0-10); EOSINOPHIL 1 % (0-4); LYMPHOCYTE 11 % (20.0-51.0); NEUTROPHILS 72 % (42.0-75.2); PLATELET ESTIMATE NORMAL (NORMAL)
[2024-07-26] MEDS ORDERED: Furosemide 40 MG/4 ML VIAL IV SCH (09:00)
[2024-07-26] MEDS ORDERED: Furosemide 100 MG in NS 100 ML IV SCH (09:00)
--- NOTE | 2024-07-26 11:19 | NUR ---
URINE OUTPUT 5OML IN LAST HOUR, TITRATED LASIX UP TO 60 MG/HR (66ML/HR)
[2024-07-26 12:27] LABS: POTASSIUM 4.2 mEq/L (3.5-4.5)
[2024-07-26] MEDS ORDERED: Albumin (Human) 100 ML IV SCH (13:00)
--- NOTE | 2024-07-26 13:15 | NUR ---
DR. MCCAIN GAVE TELEPHONE ORDER TO DECREASE PATIENTS LASIX TITRATION FROM 80MG TO 40MG. PUT IN A ONE TIME NURSING ORDER.
[2024-07-26] MEDS ORDERED: fentaNYL 50 MCG/ML 2 ML VIAL IV PRN (14:00)
--- NOTE | 2024-07-26 15:48 | NUR ---
SW participated in multidisciplinary team meeting to discuss patient's progress and discharge plan. The discharge plan is still TBD as patient remains intubated and PT/OT have been unable to complete evaluation. Team members in agreement with this plan. Discharge plan: Home, pending PT & OT evaluation
[2024-07-26] MEDS ORDERED: Multivitamins 1 VIAL,Folic Acid 1 MG,Thiamine 200 MG in TPN (Clinimix-E 8%/14%) 1,000 ML IV SCH (16:00)
--- NOTE | 2024-07-26 20:00 | NUR ---
Pt resting in bed on ventilator. VSS. IV medications infusing to central line and peripheral line without difficulty. Pt nods head when asked about pain, medication administered per MAR. Evening medications administered without difficulty. Evening assessment completed. Bilateral wrist restraints in place according to order. Pt able to follow commands on right side of body, will squeeze RN fingers on right hand when asked and can wiggle toes on right side of body when asked. Pt will nod head yes or no when asked various questions. Pt does not appear to be in significant discomfort in relation to sedation status as pt is tolerating ventilator well. No concerns at this time.
[2024-07-27] VITALS (1353 sets, daily range): BP systolic 97–117; BP diastolic 48–69; PULSE 66–75; TEMP 97.8–98; O2SAT 88–100
--- NOTE | 2024-07-27 | NUR ---
Pt continues to rest in bed on ventilator, pt coughing some but tolerating ventilator otherwise. IV medications infusing to central line and peripheral line without complications. Pt continues to follow commands at this time, able to nod head when asked about pain/discomfort, treating according to RAMYA. VSS. No further concerns at this time.
[2024-07-27 00:48] LABS: POTASSIUM 3.8 mEq/L (3.5-4.5)
--- NOTE | 2024-07-27 05:00 | NUR ---
Pt continues to rest in bed on ventilator. VSS. Upon assessment, pt is alert with eyes opening spontaneously. Pt is able to follow commands, squeezes fingers equally bilaterally when asked and wiggles toes bilaterally when asked. Pt is tolerating ventilator well, not overbreathing ventilator at this time. Pt appears comfortable. Sedation vacation not completed at this time.
[2024-07-27 05:40] LABS: MEAN CELL VOLUME 92 fl (80.0-100.0); MEAN CORPUSCULAR HGB CONC 35 g/dl (33.0-37.0); MEAN PLATELET VOLUME 11.3 fl (7.4-10.4); PLATELET COUNT 109 K/mm3 (130-400); RED BLOOD COUNT 2.47 M/mm3 (4.10-5.30); REDCELL DISTRIBUTION WIDTH-CV 13.5 % (11.5-14.5)
[2024-07-27 05:58] LABS: HEMATOCRIT 22.6 % (37.0-47.0); HEMOGLOBIN 7.8 g/dl (12.5-16.0); MEAN CORPUSCULAR HEMOGLOBIN 32 pg (27-31)
[2024-07-27 06:08] LABS: CALCIUM 6.4 mg/dL (8.4-10.2); CREATININE, serum 2.36 mg/dL (0.57-1.11); MAGNESIUM 1.9 mg/dL (1.6-2.6); PHOSPHOROUS 3.8 mg/dL (2.3-4.7); POTASSIUM 3.6 mEq/L (3.5-4.5)
[2024-07-27 06:17] LABS: BAND 19 % (0-10); EOSINOPHIL 1 % (0-4); LYMPHOCYTE 13 % (20.0-51.0); METAMYELOCYTE 1 % (0-0); NEUTROPHILS 62 % (42.0-75.2); PLATELET ESTIMATE NORMAL (NORMAL)
[2024-07-27] MEDS ORDERED: Potassium Chloride 100 ML IV ONE ×2 (06:30→18:45)
--- NOTE | 2024-07-27 08:55 | NUR ---
PT IS RESTING IN THE BED WITH HER EYES OPEN. SHE NODS HER HEAD APPROPRIATELY, SHE WILL WIGGLE HER TOES, SQUEEZE HANDS AND CAN LIFT HER HEAD SLIGHTLY OFF OF THE PILLOW. SHE HAS A BRYAN CATHETER AND NG TUBE, BOTH WITH OUTPUT. SHE REMAINS ON THE VENTILATOR. SHE HAS A CENTRAL LINE WITH PRECEDEX AND LASIX INFUSING.
[2024-07-27] MEDS ORDERED: [UNRECOGNIZED DRUG - REMARK] PO SCH (09:34)
[2024-07-27] MEDS ORDERED: Bumetanide 1 MG/4 ML VIAL IV SCH (09:35)
[2024-07-27] MEDS ORDERED: metOLazone 2.5 MG TAB PO SCH (10:50)
[2024-07-27 12:55] LABS: POTASSIUM 3.7 mEq/L (3.5-4.5)
[2024-07-27] MEDS ORDERED: tiZANidine 4 MG TAB PO SCH (13:00)
--- NOTE | 2024-07-27 15:50 | NUR ---
RN AND THIS DISHWASHER PREPARER COMMUNICATION TO CONVEYOR LINE BATTERY CHARGER ABOUT DESAT, PRN ALBUTEROL GIVEN, SUCTION WITH SALINE, ULTIMATELY INCREASE IN FIO2 AND PEEP REQUIRED.
[2024-07-27] MEDS ORDERED: Multivitamins 1 VIAL,Folic Acid 1 MG,Thiamine 200 MG in TPN (Clinimix-E 8%/14%) 1,000 ML IV SCH (16:00)
[2024-07-27] MEDS ORDERED: fentaNYL 100 ML IV SCH (16:15)
[2024-07-27 16:35] LABS: POTASSIUM 3.4 mEq/L (3.5-4.5)
--- NOTE | 2024-07-27 21:41 | NUR ---
NO CHANGES MADE. AMBU BAG IN ROOM. VENT WHEELS LOCKED. PT IS AWAKE AND MOSTLY ALERT. SHE WAS ABLE TO SHAKE HEAD YES AND NO.
[2024-07-28] VITALS (1193 sets, daily range): BP systolic 95–120; BP diastolic 47–66; PULSE 64–94; TEMP 97.9–98.9; O2SAT 80–100
--- NOTE | 2024-07-28 05:03 | NUR ---
PATIENT IS ALERT AND COOPERATIVE AT THIS TIME. PRECEDEX IS STILL AT 1 MCG/KG/HR FOR PATIENT COMFORT. UNSURE IF THERE ARE PLANS TO POTENTIALLY EXTUBATE TODAY. HAD TITRATED THE PRECEDEX DOWN TO 0.8, BUT PATIENT THEN BEGAN COUGHING WITH THE VENTILATOR, SO THIS NURSE TITRATED BACK UP TO 1 UNTIL FURTHER PLANS ARE DISCUSSED.
[2024-07-28 05:19] LABS: CALCIUM 6.8 mg/dL (8.4-10.2); CREATININE, serum 2.29 mg/dL (0.57-1.11); MAGNESIUM 1.7 mg/dL (1.6-2.6); PHOSPHOROUS 4.5 mg/dL (2.3-4.7); POTASSIUM 3.5 mEq/L (3.5-4.5)
[2024-07-28 05:24] LABS: ARTERIAL BLD GAS O2 SATURATION 92.1 % (92-100); ARTERIAL BLOOD GAS BASE EXCESS 4.3 (-2-2); ARTERIAL BLOOD GAS HCO3 27.8 meq/L (22-26); ARTERIAL BLOOD GAS PCO2 37.1 mmHg (35-45); ARTERIAL BLOOD GAS PO2 62.9 mmHg (80-100); ARTERIAL BLOOD GAS pH 7.49 (7.35-7.45)
[2024-07-28] MEDS ORDERED: Potassium Chloride 100 ML IV ONE ×2 (05:45→15:00)
[2024-07-28 05:46] LABS: ALBUMIN 3.3 g/dL (3.4-4.8); BILIRUBIN,TOTAL 1.6 mg/dL (0.2-1.2); TOTAL PROTEIN 5.8 g/dl (6.2-8.1)
[2024-07-28] MEDS ORDERED: Fluconazole 400 MG/200 ML IV SOLN IV ONE (07:45)
[2024-07-28] MEDS ORDERED: Heparin 5,000 UNITS/ML 1 ML VIAL SQ SCH (08:39)
--- NOTE | 2024-07-28 09:24 | NUR ---
PATIENT LAYING IN BED, ALERT WITH EYES OPEN. ABLE TO ANSWER YES AND NO QUESTIONS, BUT CANNOT TRULY ASSESS ORIENTATION/CONFUSION D/T ET TUBE BEING IN PLACE. FENTANYL TURNED OFF THIS MORE, PAIN ASSESSED ABOUT AN HOUR AFTER SHUTTING OFF AND PT SHAKES HEAD NO TO PAIN. PT WAS AGREEABLE TO LETTING ME CHANGE HER MIDLINE DRESSING, THERE WAS PIMENTEL DRAINAGE DRAINING OUT OF THE LOWER HALF OF THE MIDLINE. DR. GONZALEZ AWARE.
[2024-07-28] MEDS ORDERED: ANIDULAFUNGIN IV SCH (10:30)
[2024-07-28] MEDS ORDERED: NS IV SCH (10:30)
[2024-07-28] MEDS ORDERED: Bumetanide 1 MG/4 ML VIAL IV ONE (14:00)
[2024-07-28] MEDS ORDERED: Multivitamins 1 VIAL,Folic Acid 1 MG,Thiamine 200 MG in TPN (Clinimix-E 8%/14%) 1,000 ML IV SCH (16:00)
[2024-07-28] MEDS ORDERED: Succinylcholine PF 200 MG/10 ML SYRINGE IV SCH (17:28)
--- NOTE | 2024-07-28 18:00 | NUR ---
1645: PT EXTUBATED AFTER SUCCESSFUL WEENING TRIALS. WHEN PT WAS EXTUBATED SHE BECAME TACHYPNIC AND PANICKY. SHE WAS UNABLE TO BE CALMED DOWN, AND HER BREATHING WOULD NOT SLOW DOWN. THE DECISION TO RE-INTUBATE WAS MADE WITH CONSENT FROM THE PATIENT. 1720: TIME OUT WAS CALLED 1724: VERSED 4MG GIVEN TO PT 1728: 140MG SUCCS GIVEN 1732: INTUBATION COMPLETE 1732: COLOR CHANGE NOTED STAFF IN ROOM AT TIME INCLUDE Justino KELLEY RN; YESICA FIGUEROA; JESS, RT; CHAPO, RT; DR. LUTHER
--- NOTE | 2024-07-28 18:02 | NUR ---
PT EXTUBATED PER PLACED ON BIPAP THEN SWITCHED TO OXYMASK. PT BECAME INCREASINGLY AGITATED AND WAS REINTUBATED WITH 7.5 ETT 23 @ TEETH AND SAME VENT SETTINGS PREVIOUSLY.
[2024-07-28] MEDS ORDERED: Midazolam 2 MG/2 ML VIAL IV SCH (18:07)
--- NOTE | 2024-07-28 20:00 | NUR ---
Pt resting in bed on ventilator. VSS. Pt tolerating ventilator well, not coughing or overbreathing the ventilator at this time. IV medications infusing to central line without complications. Evening medication administered through OG tube without difficulty. Evening assessment completed. Pt does not appear to be in significant pain or discomfort at this time. Bilateral wrist restraints in place, skin beneath restraints intact. Pt repositioned and appears comfortable at this time.
--- NOTE | 2024-07-28 21:25 | NUR ---
PT FOUND ON I-TIME OF 0.63S. I-TIME TITRATED TO PT COMFORT.
[2024-07-29] VITALS (1091 sets, daily range): BP systolic 96–127; BP diastolic 41–55; PULSE 64–92; TEMP 97.6–99; O2SAT 79–100
[2024-07-29 05:00] LABS: MEAN CELL VOLUME 92 fl (80.0-100.0); MEAN CORPUSCULAR HGB CONC 35 g/dl (33.0-37.0); MEAN PLATELET VOLUME 11.2 fl (7.4-10.4); PLATELET COUNT 194 K/mm3 (130-400); RED BLOOD COUNT 2.41 M/mm3 (4.10-5.30); REDCELL DISTRIBUTION WIDTH-CV 13.4 % (11.5-14.5)
--- NOTE | 2024-07-29 05:00 | NUR ---
Sedation vacation not performed this morning. Pt was extubated yesterday afternoon and quickly reintubated emergently. Pt appear comfortable on current sedation medications, wakes up when repositioned and tracks when RN is walking around the room. VSS. Pt continues to tolerate ventilator well and does not appear to be in any discomfort.
[2024-07-29 05:05] LABS: HEMATOCRIT 22.2 % (37.0-47.0); HEMOGLOBIN 7.7 g/dl (12.5-16.0); MEAN CORPUSCULAR HEMOGLOBIN 32 pg (27-31)
[2024-07-29 05:12] LABS: ALBUMIN 2.6 g/dL (3.4-4.8); BILIRUBIN,TOTAL 1.6 mg/dL (0.2-1.2); CALCIUM 6.7 mg/dL (8.4-10.2); CREATININE, serum 2.21 mg/dL (0.57-1.11); TOTAL PROTEIN 5.2 g/dl (6.2-8.1)
[2024-07-29 05:54] LABS: MAGNESIUM 1.5 mg/dL (1.6-2.6); PHOSPHOROUS 4.8 mg/dL (2.3-4.7)
[2024-07-29] MEDS ORDERED: Potassium Chloride 100 ML IV ONE ×2 (06:00→15:45)
[2024-07-29 06:16] LABS: BAND 10 % (0-10); HYPOCHROMIA 1+; LYMPHOCYTE 7 % (20.0-51.0); NEUTROPHILS 78 % (42.0-75.2); NUCLEATED RED BLOOD CELL 3 (0-6); PLATELET ESTIMATE NORMAL (NORMAL)
--- NOTE | 2024-07-29 07:00 | NUR ---
REPORT RECEIVED FROM YESICA LARKIN. PT ON VENTILATOR, 7.5 ETT MEASURES 23CM AT TEETH, AC MODE, TV 375, PEEP 5, FIO2 45%, RR 16. OG IN PLACE MEASURES 55CM AT LIPS AND IS CONNECTED TO LIS. SEDATION AND TPN INFUSING TO RIJ CENTRAL LINE, SITE WNL. MIDLINE INCISION TO ABD STAPLED AND COVERED W/ GAUZE, SOME DRAINAGE NOTED TO DRESSING. COLOSTOMY TO L ABDOMEN WNL, SMALL AMOUNT OF CLEAR YELLOW TERRI FLUID IN BAG. BRYAN IN PLACE TO DEPENDENT DRAINAGE. PT OPENS EYES SPONTANEOUSLY AND ANSWERS QUESTIONS BY SHAKING HEAD.
[2024-07-29] MEDS ORDERED: Fluconazole 200 MG/100 ML IV SOLN IV SCH (09:00)
[2024-07-29] MEDS ORDERED: HYDROmorphone 0.5 MG/0.5 ML SYRINGE IV PRN (09:00)
[2024-07-29] MEDS ORDERED: Anidulafungin 100 MG in NS 100 ML IV SCH (09:00)
[2024-07-29] MEDS ORDERED: CALCIUM GLUCONATE 1000 MG IV SCH (16:00)
[2024-07-29] MEDS ORDERED: [UNRECOGNIZED DRUG - OTHER] IV SCH (16:00)
[2024-07-29] MEDS ORDERED: POTASSIUM CHLORIDE 40 MEQ IV SCH (16:00)
[2024-07-29] MEDS ORDERED: MAGNESIUM SULFATE IV SCH (16:00)
[2024-07-29] MEDS ORDERED: metOLazone 2.5 MG TAB PO SCH (16:30)
[2024-07-29] MEDS ORDERED: Bumetanide 1 MG/4 ML VIAL IV SCH (17:00)
--- NOTE | 2024-07-29 19:34 | NUR ---
SEDATION VACATION NOT DONE AT THIS TIME. PT WAKES EASILY ON CURRENT LEVELS OF SEDATION. SEDATION VACATION PLANNED FOR [address] MCCAIN.
--- NOTE | 2024-07-29 19:44 | NUR ---
DURING MORNING ROUNDS DR GONZALEZ REMOVED APPROX 9CM OF SANDRA FROM MIDDLE OF MIDLINE ABD INCISION. WOUND THEN CLEANSED W/ SALINE, PACKED W/ 4X4 GAUZE MOISTENED W/ SALINE, COVERED W/ FOLDED 4X4'S AND ABD PAD. DR GONZALEZ ORDERED DRESSING TO BE CHANGED ONCE PER SHIFT OR PRN WHEN SATURATED. DRESSING CHANGED AGAIN AT 1830, MODERATE AMOUNT OF PURULENT DRAINAGE NOTED TO WOUND PACKING, DRESSING RE APPLIED ORDERED.
--- NOTE | 2024-07-29 20:00 | NUR ---
Pt resting in bed on ventilator. Pt tolerating ventilator well. VSS. IV medications infusing to central line without complications. Tube feeding in progress to OG tube, pt tolerating well at this time. Dressing to midline incision intact and clean. Rash to bilateral lower legs, providers aware. Bilateral wrist restraints in place, skin beneath restraints intact. Pt does not appear to be in pain or discomfort at this time.
[2024-07-30] VITALS (1231 sets, daily range): BP systolic 103–129; BP diastolic 40–54; PULSE 85–99; TEMP 98–99.7; O2SAT 88–100
--- NOTE | 2024-07-30 05:00 | NUR ---
Sedation vacation not performed this morning. Sedation to be weaned at 0700 this morning for potential extubation. Pt tolerating ventilator well. VSS. Pt will open eyes with repositioning. Pt does not appear to be in pain or discomfort at this time.
[2024-07-30 05:06] LABS: MEAN CELL VOLUME 93 fl (80.0-100.0); MEAN CORPUSCULAR HGB CONC 34 g/dl (33.0-37.0); PLATELET COUNT 248 K/mm3 (130-400); RED BLOOD COUNT 2.61 M/mm3 (4.10-5.30); REDCELL DISTRIBUTION WIDTH-CV 13.8 % (11.5-14.5)
[2024-07-30 05:12] LABS: HEMATOCRIT 24.2 % (37.0-47.0); HEMOGLOBIN 8.2 g/dl (12.5-16.0); MEAN CORPUSCULAR HEMOGLOBIN 31 pg (27-31)
[2024-07-30 05:34] LABS: ALBUMIN 2.3 g/dL (3.4-4.8); BILIRUBIN,TOTAL 1.1 mg/dL (0.2-1.2); CREATININE, serum 2.26 mg/dL (0.57-1.11); PHOSPHOROUS 5.3 mg/dL (2.3-4.7); POTASSIUM 3.4 mEq/L (3.5-4.5); TOTAL PROTEIN 5.3 g/dl (6.2-8.1)
[2024-07-30] MEDS ORDERED: Potassium Chloride 100 ML IV ONE (06:45)
[2024-07-30 08:22] LABS: BAND 6 % (0-10); EOSINOPHIL 1 % (0-4); LYMPHOCYTE 9 % (20.0-51.0); NEUTROPHILS 78 % (42.0-75.2); PLATELET ESTIMATE NORMAL (NORMAL)
[2024-07-30 08:28] LABS: POLYCHROMASIA 1+
[2024-07-30] MEDS ORDERED: Calcium Acetate 667 MG TAB/CAP PO SCH (12:00)
--- NOTE | 2024-07-30 12:35 | NUR ---
PT IS RESTING WITH HER EYES CLOSED ON THE VENTILATOR. SHE DOES OPEN HER EYES TO VOICE. SHE HAS A RIJ WITH FENTANYL, PROPOFOL AND TPN INFUSING. SHE HAS A BRYAN CATHETER. SHE HAS AN OG TUBE WITH FEEDS INFUSING. SHE HAS A MIDLINE ABDOMINAL INCISION WITH A WET TO DRY DRESSING.
[2024-07-30] MEDS ORDERED: [UNRECOGNIZED DRUG - OTHER] IV SCH (16:00)
[2024-07-30] MEDS ORDERED: POTASSIUM CHLORIDE 60 MEQ IV SCH (16:00)
[2024-07-30] MEDS ORDERED: CALCIUM GLUCONATE 1000 MG IV SCH (16:00)
[2024-07-30] MEDS ORDERED: MAGNESIUM SULFATE IV SCH (16:00)
--- NOTE | 2024-07-30 20:00 | NUR ---
Pt resting in bed on ventilator. VSS. Pt tolerating ventilator well. IV medications infusing to central line without difficulty. Bilateral wrist restraints in place, skin intact beneath restraints. Pt does not appear to be in pain or discomfort at this time. Pt opens eyes when repositioned and reacts to painful stimuli. Midline incision dressing CDI, wet to dry dressing in place covered with gauze, ABD pad, and medipore tape. Tube feeding running, pt tolerating well at this time with residual checks being performed. No further concerns at this time.
[2024-07-31] VITALS (1407 sets, daily range): BP systolic 104–129; BP diastolic 48–62; PULSE 62–108; TEMP 98–99.3; O2SAT 89–99
[2024-07-31 04:00] LABS: MEAN CELL VOLUME 91 fl (80.0-100.0); MEAN CORPUSCULAR HGB CONC 35 g/dl (33.0-37.0); MEAN PLATELET VOLUME 10.6 fl (7.4-10.4); PLATELET COUNT 299 K/mm3 (130-400); RED BLOOD COUNT 2.83 M/mm3 (4.10-5.30); REDCELL DISTRIBUTION WIDTH-CV 13.8 % (11.5-14.5)
[2024-07-31 04:22] LABS: HEMATOCRIT 25.8 % (37.0-47.0); HEMOGLOBIN 8.9 g/dl (12.5-16.0); MEAN CORPUSCULAR HEMOGLOBIN 31 pg (27-31)
[2024-07-31 04:55] LABS: ALBUMIN 2.1 g/dL (3.4-4.8); CALCIUM 7.6 mg/dL (8.4-10.2); CREATININE, serum 2.21 mg/dL (0.57-1.11); MAGNESIUM 2.1 mg/dL (1.6-2.6); PHOSPHOROUS 5.1 mg/dL (2.3-4.7); POTASSIUM 3.7 mEq/L (3.5-4.5); TOTAL PROTEIN 5.8 g/dl (6.2-8.1)
[2024-07-31 05:06] LABS: BAND 15 % (0-10); LYMPHOCYTE 13 % (20.0-51.0); NEUTROPHILS 67 % (42.0-75.2); PLATELET ESTIMATE NORMAL (NORMAL)
[2024-07-31 05:07] LABS: HYPOCHROMIA 1+
[2024-07-31] MEDS ORDERED: Potassium Chloride 100 ML IV ONE (05:30)
[2024-07-31 06:04] LABS: ARTERIAL BLD GAS O2 SATURATION 92.4 % (92-100); ARTERIAL BLD GAS TCO2 CT 29.9; ARTERIAL BLOOD GAS BASE EXCESS 3.6 (-2-2); ARTERIAL BLOOD GAS HCO3 28.5 meq/L (22-26); ARTERIAL BLOOD GAS PCO2 44.9 mmHg (35-45); ARTERIAL BLOOD GAS PO2 64.8 mmHg (80-100); ARTERIAL BLOOD GAS pH 7.42 (7.35-7.45)
--- NOTE | 2024-07-31 14:38 | NUR ---
DR. CORTEZ CAME AND REMOVED MORE SANDRA FROM MIDLINE INCISION. WAS SHOWN HOW TO APPROPRIATELY CARE FOR THE DRESSING. PACK LOOSELY WITH 2-3 4X4s THAT HAVE BEEN UNFOLDED AND PLACE THEM IN THE WOUND. ONCE WOUND IS LOOSELY PACKED TAKE A FLUSH AND MOISTEN THE GAUZE. ONCE THIS IS DONE PLACE 3 4X4 IN A LINE UP THE MIDLINE INCISION AND COVER AND TAPE WITH AN ABD PAD. PT HAD PICC PLACED IN RU ARM, AND TRIPLE LUMEN RIGHT IJ REMOVED. IJ WAS INTACT UPON REMOVAL, PT TOLERATED PICC PROCEDURE WELL TITRATED FEEDS UP TO 15ML/HR PER CHECKROOM ATTENDANT INSTRUCITON
[2024-07-31] MEDS ORDERED: [UNRECOGNIZED DRUG - OTHER] IV SCH (16:00)
[2024-07-31] MEDS ORDERED: CALCIUM GLUCONATE IV SCH (16:00)
[2024-07-31] MEDS ORDERED: MAGNESIUM SULFATE IV SCH (16:00)
--- NOTE | 2024-07-31 16:35 | NUR ---
medical office worker attended interdisciplinary clinical rounding with Dr. Agarwal. It was attempted to extubate patient this morning but failed so patient is still intubated. SW attended the multidisciplinary team conference to discuss patient's progress and discharge plan. Patient may need to be referred to LTACH if patient's medical status does not improve. Everyone was in agreement with this plan if the family chose that for the patient as she is currently intubated. Discharge plan: TBD
--- NOTE | 2024-07-31 19:20 | NUR ---
THIS NURSE RECIEVED REPORT FROM EYSICA BENTON. PATIENT IS SEEN LIGHTLY SEDATED AT THIS TIME. PATIENT IS STILL CURRENTLY ON THE VENTILATOR AND TOLERATING IT WELL. PATIENT HAS A PICC IN THE L UPPER ARM. PATIENT HAS PROPOFOL AT 13 MLS/HR, FENTANYL AT 2.5 MLS/HR, ZOSYN AT 25 ML/HR, AND TPN AT 46 ML/HR. PATIENT HAS A BRYAN AND IT IS DRAINING APPROPRIATELY WITH NO CONCERNS NOTED. THIS NURSE ALSO SHOWN THE OPEN MIDLINE WOUND AT THIS TIME. GAUZE AND ABD ARE CLEAN, DRY, AND INTACT AT THIS TIME. VITAL SIGNS ARE WNL, EXECPT FOR A TACHYCARDIC HEART RATE. BED IS IN LOW POSITION, CALL LIGHT WITHIN REACH, WHEELS LOCKED, AND BED ALARM ON.
[2024-08-01] VITALS (1365 sets, daily range): BP systolic 99–117; BP diastolic 49–64; PULSE 81–108; TEMP 97.4–102.2; O2SAT 90–100
--- NOTE | 2024-08-01 05:00 | NUR ---
THIS NURSE, JUSTIN, AND GARRISON ALL COMPLETED THIS PATIENT'S DRESSING CHANGE. WE PULLED 3 PREVIOUS WET TO DRY GAUZES FROM THE WOUND BED. WE THEN PACKED THE WOUND BED WITH 7 WET TO DRY GAUZES. WE PLACED 2 TEFLA DRESSINGS OVER THE WET TO DRY DRESSINGS TO HOLD IN MOISTURE, INSTEAD OF SOAKING IT UP, THEN PLACED TO DRY GAUZE PADS ON THE LOWER PORTION TO CATCH ANY EXTRA DRAINAGE. PLACEMENT OF THE ABD PAD WAS THEN SECURED BY MEFIX TAPE. DRESSING INITIALED, DATED, AND TIMED. PATIENT INSTANTLY HAD A DECREASE IN HEART RATE FROM 110S TO HIGH 80S. PATIENT TOLERATED THE CLEANING VERY WELL.
--- NOTE | 2024-08-01 05:08 | NUR ---
SEDATION VACATION NOT COMPLETED DUE TO PLAN OF CARE MEETING TO DISCUSS FURTHER OPTIONS AND PLANS TODAY.
[2024-08-01 06:57] LABS: ALBUMIN 2.1 g/dL (3.4-4.8); BILIRUBIN,TOTAL 0.9 mg/dL (0.2-1.2); CALCIUM 8.6 mg/dL (8.4-10.2); CREATININE, serum 2.31 mg/dL (0.57-1.11); POTASSIUM 3.4 mEq/L (3.5-4.5); TOTAL PROTEIN 6.5 g/dl (6.2-8.1)
--- NOTE | 2024-08-01 07:00 | NUR ---
REPORT RECEIVED FROM YESICA CARTER. PT REMAINS SEDATED ON VENTILATOR, 7.5 ETT MEASURES 22CM AT TEETH, AC MODE, TV 350, PEEP 5, FIO2 40%, RATE 12. OG IN PLACE MEASURES 55CM AT TEETH, TUBE FEEDINGS INFUSING ORDERED. SEDATION AND TPN INFUSING TO L UPPER ARM PICC ORDERED. BRYAN CATHETER IN PLACE TO DEPENDENT DRAINAGE. MIDLINE INCISION TO ABD PACKED W/ GAUZE AND COVERED W/ ABD PAD, DRESSING CDI. BED ALARM IN PLACE FOR PT SAFETY.
[2024-08-01 08:11] LABS: ARTERIAL BLD GAS O2 SATURATION 90.4 % (92-100); ARTERIAL BLD GAS TCO2 CT 27.7; ARTERIAL BLOOD GAS BASE EXCESS 2.4 (-2-2); ARTERIAL BLOOD GAS HCO3 26.5 meq/L (22-26); ARTERIAL BLOOD GAS PCO2 39.2 mmHg (35-45); ARTERIAL BLOOD GAS PO2 58.8 mmHg (80-100); ARTERIAL BLOOD GAS pH 7.45 (7.35-7.45)
[2024-08-01] MEDS ORDERED: Potassium Chloride 100 ML IV ONE (08:15)
[2024-08-01] MEDS ORDERED: Midazolam 100 ML IV SCH (08:15)
[2024-08-01 08:22] LABS: HEMATOCRIT 26.6 % (37.0-47.0); MEAN CELL VOLUME 94 fl (80.0-100.0); MEAN CORPUSCULAR HEMOGLOBIN 32 pg (27-31); MEAN CORPUSCULAR HGB CONC 34 g/dl (33.0-37.0); MEAN PLATELET VOLUME 11.2 fl (7.4-10.4); PLATELET COUNT 338 K/mm3 (130-400); RED BLOOD COUNT 2.84 M/mm3 (4.10-5.30); REDCELL DISTRIBUTION WIDTH-CV 14.4 % (11.5-14.5)
[2024-08-01 08:57] LABS: BAND 22 % (0-10); LYMPHOCYTE 4 % (20.0-51.0); METAMYELOCYTE 2 % (0-0); MYELOCYTE 7 % (0-0); NEUTROPHILS 60 % (42.0-75.2); PLATELET ESTIMATE NORMAL (NORMAL); POIKILOCYTOSIS 2+; TARGET CELLS 1+
[2024-08-01 08:58] LABS: STOMATOCYTE 1+
--- NOTE | 2024-08-01 15:37 | NUR ---
line worker attended multidisciplinary meeting today. Plan of for family to decide on trach and peg placement. Referral has been given to [facility]. All Team members are in agreement with the discharge plan.
[2024-08-01] MEDS ORDERED: POTASSIUM CHLORIDE IV SCH (16:00)
[2024-08-01] MEDS ORDERED: MAGNESIUM SULFATE IV SCH (16:00)
[2024-08-01] MEDS ORDERED: SODIUM CHLORIDE IV SCH (16:00)
[2024-08-01] MEDS ORDERED: [UNRECOGNIZED DRUG - OTHER] IV SCH (16:00)
--- NOTE | 2024-08-01 16:49 | NUR ---
millinery worker attended interdisciplinary clinical rounding with Dr Agarwal. Patient is intubated, patient's spouse was present and they contacted Wilder - DPOA-HC P# [phone] and his Mariella P# [phone] to discuss the plan moving forward. Dr. Agarwal explained the plan was for them to complete a trach and peg surgery then [facility] after surgery. Wilder asked about the prognosis for patient. Dr. Agarwal explained patient's organs were still functioning well and BP was stable, so they were hopeful with looking at LTACH otherwise they would discuss comfort care as another option but the decision was up to Wilder as the DP-. Wilder stated he would discuss this with his and get back to the healthcare social worker and nurse on their decision. GONZALO asked if they would like to move forward with an LTACH referral and discussed the options available per Medicare.gov. Wilder and Mariella agreed for the referral to be sent to [facility] in [place] as they have family there. GONZALO faxed referral to [facility]. GONZALO was notified by patient's nurse, Rosemary, family chose for the trach and peg surgery and this was scheduled for tomorrow. Discharge plan: [facility]
[2024-08-01] MEDS ORDERED: Insulin Lispro (HumaLOG) SQ SCH (18:00)
[2024-08-02] VITALS (811 sets, daily range): BP systolic 107–134; BP diastolic 48–66; PULSE 98–105; TEMP 98.8–99.8; O2SAT 78–100
[2024-08-02 05:09] LABS: MEAN CELL VOLUME 90 fl (80.0-100.0); MEAN CORPUSCULAR HGB CONC 36 g/dl (33.0-37.0); MEAN PLATELET VOLUME 10.3 fl (7.4-10.4); PLATELET COUNT 306 K/mm3 (130-400); RED BLOOD COUNT 2.82 M/mm3 (4.10-5.30); REDCELL DISTRIBUTION WIDTH-CV 13.8 % (11.5-14.5)
--- NOTE | 2024-08-02 05:19 | NUR ---
NO SEDATION VACATION THIS PATIENT IS GOING BACK FOR SURGERY THIS AFTERNOON FOR PLACEMENT OF TRACH AND PEG TUBE.
[2024-08-02 05:25] LABS: ALBUMIN 2.1 g/dL (3.4-4.8); BILIRUBIN,TOTAL 0.7 mg/dL (0.2-1.2); CALCIUM 8.7 mg/dL (8.4-10.2); CREATININE, serum 2.15 mg/dL (0.57-1.11); MAGNESIUM 2.3 mg/dL (1.6-2.6); PHOSPHOROUS 5.5 mg/dL (2.3-4.7); POTASSIUM 3.9 mEq/L (3.5-4.5); TOTAL PROTEIN 6.8 g/dl (6.2-8.1)
[2024-08-02 05:26] LABS: HEMATOCRIT 25.3 % (37.0-47.0); MEAN CORPUSCULAR HEMOGLOBIN 32 pg (27-31)
[2024-08-02 05:47] LABS: BAND 26 % (0-10); LYMPHOCYTE 7 % (20.0-51.0); METAMYELOCYTE 3 % (0-0); NEUTROPHILS 58 % (42.0-75.2); PLATELET ESTIMATE NORMAL (NORMAL)
[2024-08-02 05:48] LABS: TARGET CELLS 1+
--- NOTE | 2024-08-02 07:00 | NUR ---
REPORT RECEIVED FROM YESICA CARTER. PT REMAINS SEDATED ON VENTILATOR, ALL LINE/TUBE PLACEMENTS CHECKED AND VERIFIED. TUBE FEEDS ON HOLD AT THIS TIME. SEDATION AND TPN INFUSING TO L UPPER ARM PICC, SITE WNL. BRYAN CATHETER IN PLACE TO DEPENDENT DRAINAGE. DRESSING TO MIDLINE ABD INCISION CDI.
[2024-08-02] MEDS ORDERED: Morphine 4 MG/ML VIAL IV PRN (11:45)
[2024-08-02] MEDS ORDERED: Glycopyrrolate 0.2 MG/ML 1 ML VIAL IV PRN (11:45)
[2024-08-02] MEDS ORDERED: Scopolamine 1 MG Delivered 3-Day PATCH TD SCH (11:45)
[2024-08-02] MEDS ORDERED: Carboxymethylcellulose PF Ophth 0.4 ML DROPPERETTE OP PRN (11:45)
[2024-08-02] MEDS ORDERED: Atropine 1% Ophth Soln 2 ML BOTTLE SL PRN (11:45)
[2024-08-02] MEDS ORDERED: Albuterol 0.083% Neb Soln 2.5 MG/3 ML UD IH PRN (11:45)
[2024-08-02] MEDS ORDERED: Morphine Oral Concentrate 20 MG/ML UD SL PRN (11:45)
[2024-08-02] MEDS ORDERED: LORazepam 2 MG/ML 1 ML VIAL IV PRN (11:45)
[2024-08-02] MEDS ORDERED: Insulin Lispro (HumaLOG) SQ SCH (12:00)
--- NOTE | 2024-08-02 12:30 | NUR ---
MTN notified with family wanting to persue comfort care, referral number [id number], we may continue with palliative extubation and call MTN with time of .
--- NOTE | 2024-08-02 13:15 | NUR ---
material worker received a call from rupesh Hdz/CARYL-, to discuss correction care insurance. GONZALO explained patient is not showing to have Medicaid but patient may have a private pay intermediate accountant care insurance. GONZALO explained it was likely after [facility] patient would need to go to rehab at a SNF then possible LTC after and if they were wanting to start that process now was the time. Wilder stated he was not certain if patient would want intermediate accountant care and would need to discuss this more with her on how to proceed. GONZALO was notified during interdisciplinary clinical rounding patient was starting to medically decline. Denise SÁNCHEZ (ICU Primary Health Care Nurse, and Dr Esme Agarwal contacted Wilder, CARYL-MACHO, to discuss this. Wilder reported he would like to discuss with patient's but believes they would lean towards comfort care rather than aggressive. GONZALO was notified patient's family decided on comfort care measures. GONZALO notified [facility] of patient's family choice to move towards comfort care rather than aggressive.
--- NOTE | 2024-08-02 14:35 | NUR ---
PT EXTUBATED FOR PALLATIVE CARE.
--- NOTE | 2024-08-02 14:49 | NUR ---
Primary RN requests a family meeting with MD to discuss goals of care. Patient with plans to go to OR at noon for trach & PEG. DPOA/nephew, Wilder, had discussion with other family members & would like to discuss comfort care option. Linda Chaidez () & this RN called Wilder. Patient's , Rafael, at bedside; Wilder prefers to call Don after talking with care team. Dr. Agarwal discuss patient's current medical problems, treatments, clinical condition & poor prognosis. Discussed plan for trach/PEG & then the longer term plan of LTAC & likely group home placement. Comfort care discussed as an option. Wilder stated that they patient would not want all of this done & would not want to go to a group home if there is limited hope of returning home. This RN described the comfort care process, medication, extubation & changing goals to comfort. Wilder expressed understanding & requested to discuss with his uncle, Rafael. Call number provided. Discussed that if the plan is comfort care then the recommendation is that the change in goals happens today since travel plans for Wilder are not known. 1150 - Receive call back from Wilder. Wilder states to proceed with comfort care. Reviewed process & Wilder able to verbalize an understanding. Asked if the patient would want a behavioral health technician; advised by Wilder to verify with Rafael at bedside. 1200 - This RN at bedside to discuss plan for comfort care with Rafael (). Expressed understanding. Discuss patient's kenn & Don requested that their diet assistant visit patient. Call to Manager Implementation for request for [facility] diet assistant to visit. Primary RN updated. Shoe Dyer notified of need to notify MTN for palliative extubation.
[2024-08-02] MEDS ORDERED: [UNRECOGNIZED DRUG - OTHER] IV SCH (16:00)
[2024-08-02] MEDS ORDERED: SODIUM CHLORIDE IV SCH (16:00)
[2024-08-02] MEDS ORDERED: POTASSIUM CHLORIDE IV SCH (16:00)
[2024-08-02] MEDS ORDERED: MAGNESIUM SULFATE IV SCH (16:00)
--- NOTE | 2024-08-02 20:00 | NUR ---
Pt is resting in bed, appears comfortable and without significant pain or discomfort. Pt is tachypneic and slightly tachycardic. Pt is not moaning or groaning at this time. Pt does not respond when spoken to or follow commands. No further concerns due to comfort care status. Call light within reach.
--- NOTE | 2024-08-03 07:24 | NUR ---
Report received from YESICA Segovia. Pt is comfort care. Pt is attached to tele but no other vital signs being taken at this time. Pt appears to be resting comfortably. PRN morphine given throughout evening for comfort. Will continue with POC.
--- NOTE | 2024-08-03 08:59 | NUR ---
beef cattle farm worker confirmed with CHRISTEL Hdz, he has been in contact with Mariella Bustamante, daughter, whom called the administrator social welfare on 08/01/24 and they have been in communication about the comfort care decision. Wilder stated is on his way to [place] and should be at [facility]'s home, by around 6:30 pm. Continue with comfort care.
--- NOTE | 2024-08-03 15:48 | NUR ---
REC'D PT FROM ICU. PT IS ASLEEP. PT DAUGHTER AND AT BEDSIDE.
[2024-08-03 15:53] VITALS: BP 99/65; PULSE 110; TEMP 98.9
--- NOTE | 2024-08-03 15:54 | NUR ---
Report called to YESICA Jean on medical. Pt transferred to room 308 via bed. Pt given medication prior to transfer. Family in room and updated. Miranda, Notifed when pt was in room.
--- NOTE | 2024-08-03 16:28 | NUR ---
general foundry worker spoke with Wilder, DPOA-HC and Jomar, spouse, to discuss options for hospice. GONZALO explained the options in [place] are [facility], Nursing facilities with hospice agencies or home with hospice. GONZALO explained if family chose home with hospice they would need to provide 24/7 care for patient as the hospice agency would provide supplies needed but they would not provide 24/7 care. Jomar and Wilder both agreed they did not think they would have the support available for this. GONZALO provided the Medicare.gov list of options for SNF and hospice. Wilder reported he would be in [place] around 6:30 pm and would like to discuss this more with Jomar in person but would like a referral to [facility]. GONZALO also reviewed pricing for hospice house and nursing facility as patient does not have Medicaid or LTC insurance for the payer source for room and board. GONZALO notified patient's nurse and Dr. Agarwal of this information. GONZALO secure emailed referral to [facility]. GONZALO was notified by Malvin, charter school executive director at [facility], Dr. Turner is going to follow and Malvin will contact patient's DPOA-HC tomorrow morning to discuss with them. Malvin believes they would be able to accept patient tomorrow if family chooses their services. Discharge plan: Hospice
--- NOTE | 2024-08-03 17:30 | NUR ---
I WAS CALLED INTO PT ROOM BY AIDE. WAS AT BEDSIDE. BELIEVED PT TO NO LONGER BE BREATHING. ASSESSED PT CAROTID ARTERY, NO PULSE. LISTED TO LUNG QUIÑONEZ, ABSENT. CALLED YESICA LEON. CONFIRMED FINDINGS. CALLED , THEN LUMITE INJECTOR SOCO. KAUSHAL'Dustin BRYAN. CLEANED PT WITH WARM BATHING WIPES. REPLACED GOWN AND LINENS. APPLIED SMALL ROLLED TOWELS UNDER CHIN. PT LYING AND POSITIONED AT REST.
--- NOTE | 2024-08-03 18:29 | NUR ---
NOTIFIED BY PRIMARY NURSE SANTOS THAT SHE AND EDWARD RN HAD TWO RN VERIFICATION THAT PATIENT AT 1730. CASEY AT BEDSIDE. BILL, PATIENT NEPHEW AND POA NOTIFIED AT 1745 AND STATES HE IS ON HIS WAY FROM [place] AND WILL ARRIVE AT APPROXIMATELY 1900. DR. Jazmin GRANDE NOTIFIED OF PATIENT EXPIRATION AT 1730. CHAPLAIN SEN NOTIFIED AT 1750 THAT PATIENT CASEY WOULD LIKE HIM TO COME TO BEDSIDE. MTN NOTIFIED AT 1817 AND SPOKE WITH MIRIAN. REFERRAL #[id number]. MIRIAN STATED PATIENT WAS NOT A CANDIDATE FOR TISSUE OR EYE DONATION AND IT WAS OK TO RELEASE PATIENT TO HOME. PATIENT CASEY UNSURE AT THIS TIME AT WHICH HOME HE WOULD LIKE TO USE AND HAS ASKED TO WAIT UNTIL NEPHEW BILL GETS THERE TO HELP MAKE DECISIONS.
--- NOTE | 2024-08-03 20:00 | NUR ---
DECIDED ON HOME IN [place]-[ BORIS}- AND IF HOME FOR TONIGHT IN THIS AREA WOULD LIKE IT TO BE [facility] IN [place]-- SHELTER DIRECTOR AWARE AND SHE WILL CALL HOME- ALSO NOTED THAT PT HAS GOLD COLORED BAND TO LEFT RING FINGER,, DOES NOT WANT TO REMOVE IT AND STATES SHE TOLD HIM TO CREMATE HER WITH THE RING ON-- WILL LET THE HOME KNOW
--- NOTE | 2024-08-03 21:51 | NUR ---
BODY RELEASED TO [facility] AT THIS TIME, INFORMED OF GOLD BAND TO LEFT FINGER ONLY PERSONAL BELONGING.
--- NOTE | 2024-08-04 13:04 | NUR ---
GONZALO was notified patient the evening prior. GONZALO contacted [facility] to notify them of patient's passing as they had been reviewing patient's referral and possibly accept patient.
== END 2024-08-03 21:51 | disposition expired | DRG 853 ==
LOC: COL.ER 02:25 → ICU 03:32 → COL.ER 05:03 → ICU 07-24 19:45 → MEDICAL 08-03 15:45
PROVIDERS: Emergency Medicine; Internal Medicine; Internal Medicine Pulmonary Disease; Nurse Practitioner Family; Physician Assistant; Student in an Organized Health Care Education/Training Program; Surgery; ADMIT Hospitalist
PROC: 0DB80ZZ Excision of Small Intestine, Open Approach (ICD-10-PCS; principal; 2024-07-22 05:00)
PROC: 0DNW0ZZ Release Peritoneum, Open Approach (ICD-10-PCS; 2024-07-22 05:00)
PROC: 02HV33Z Insertion of Infusion Device into Superior Vena Cava, Percutaneous Approach (ICD-10-PCS; 2024-07-31)
DX: A41.9 Sepsis, unspecified organism (principal); K63.1 Perforation of intestine (nontraumatic); R65.21 Severe sepsis with septic shock; E87.20 Acidosis, unspecified; N17.9 Acute kidney failure, unspecified; K43.3 Parastomal hernia with obstruction, without gangrene; J44.9 Chronic obstructive pulmonary disease, unspecified; E87.6 Hypokalemia; E83.42 Hypomagnesemia; E83.39 Other disorders of phosphorus metabolism; E87.5 Hyperkalemia; D69.6 Thrombocytopenia, unspecified; R57.1 Hypovolemic shock
CPT/HCPCS: A4314; C1751; J0348; J0612; J1171; J1450; J1644; J1805; J1815; J1940; J2060; J2250; J2251; J2270; J2371; J2470; J2543; J2704; J2765; J3010; J3411; J3475; J3480; J7030; J7050; J7060; J7120; J7131; P9016; P9047; Q3014; Q9967